=== PATIENT | female | born 1935 | race Caucasian/White ===

== ENCOUNTER 2017-02-18 07:54 | Day surgery (SDC) | payer MEDICARE, BC ==
[~2017-02-18 07:54] MED LIST: Midazolam 1 MG/ML 2 ML SDV ONE; Propofol 200 MG/20 ML SDV ONE; fentaNYL 100 MCG/2 ML SDV ONE
[2017-02-18] MEDS ORDERED: Lactated Ringers 1,000 ML IV SCH (08:30)
[2017-02-18 14:10] VITALS: BP 124/66
--- NOTE | 2017-02-19 08:00 | OR ---
DATE OF PROCEDURE: 02/18/2017 PREOPERATIVE DIAGNOSIS: History of colon cancer. POSTOPERATIVE DIAGNOSES: 1. Multiple colon polyps. 2. History of colon cancer. No evidence of disease. PROCEDURE PERFORMED: Colonoscopy to the cecum with biopsy resection of multiple colon polyps and snare cautery polypectomy of one polyp. SURGEON: Deric Sweet MD. ANESTHESIA: IV anesthesia with monitored anesthesia care. INDICATIONS: This is an 81-year-old white female who has undergone a left hemicolectomy for colon cancer. She is here for a followup colonoscopy. I counseled her for the procedure including risks and alternatives, and she gave her informed consent to proceed. DESCRIPTION OF PROCEDURE: The patient was placed in the left lateral decubitus position. IV anesthesia was administered by the Anesthesia Service. Time-out was held. A rectal exam was performed, which was unremarkable. The flexible video Olympus colonoscope was introduced through her anus, up her rectum, and out her colon all the way to the cecum. En route, we encountered a polyp in the proximal transverse colon, which we initially biopsied. It was too large to remove using this technique. A snare was passed about its base, it was elevated up away from the bowel wall and amputated as electrocautery was applied. While retrieving the polyp, we encountered two more polyps adjacent to each other in the mid transverse colon. These were removed with the biopsy forceps. Once the cecum was reached, the scope was slowly withdrawn, examining the mucosa throughout. A small right colon polyp was seen, which we removed with the biopsy forceps. A distal sigmoid colon polyp was seen, which we removed with the biopsy forceps. The scope was brought back through the anastomosis which appeared well with no evidence of local recurrence. We did see a small polyp in the rectum which was removed with the biopsy forceps. The scope was retroflexed with the distal rectum appearing some minor hemorrhoidal tissue. The scope was straightened and removed. She tolerated the procedure well. Deric Sweet MD /[id number]
== END 2017-02-18 13:25 | disposition home or self-care (01) ==
LOC: JP.SDS 07:54
PROVIDERS: ATTEND Surgery
DX: Z12.11 Encounter for screening for malignant neoplasm of colon (principal); D12.3 Benign neoplasm of transverse colon; D12.2 Benign neoplasm of ascending colon; D12.5 Benign neoplasm of sigmoid colon; Z85.038 Personal history of other malignant neoplasm of large intestine
CPT/HCPCS: 45380; 45385; 88305; J2250; J2704; J3010; J7120

== ENCOUNTER 2019-10-12 09:53 | Emergency (ER) | payer BC, MEDICARE ==
[2019-10-12 10:21] VITALS: BP 114/64; PULSE 91
--- NOTE | 2019-10-12 11:02 | EDM.PDOC ---
ED HPI GENERAL MEDICAL PROBLEM - General Chief Complaint: Syncope Stated Complaint: DIZZY SOME Time Seen by Provider: 10/12/19 10:20 Source of Information: Reports: Patient, Family History Limitations: Reports: No Limitations - History of Present Illness INITIAL COMMENTS - FREE TEXT/NARRATIVE: 84-year-old female with a known history of colon cancer who is scheduled for colonoscopy tomorrow, has started the prep this morning. She was having her virtual visit over the computer this morning, and when that ended she got up and went in to another room of the house and she told her she "needed to lie down". She then became very weak and dizzy and he assisted her to the floor and he claims she "passed out", she thinks she just was resting for a bit. She had no pain, no trauma, mild nausea but no vomiting and no other symptoms of mild dizziness. She denied any palpitations or shortness of breath , her main complaint at this time is that she feels hungry and she is angry about being here. She was asked if she wanted something to eat and she responded she could not eat anything because she is preparing for a colonoscopy which I felt was a fairly good cognitive sign. I did review her clinic visit from earlier this morning and she displayed significant baseline confusion during the interview. Onset: Sudden (Near syncopal symptoms started fairly suddenly this morning) Duration: Minutes: (Several minutes) Associated Symptoms: Reports: Weakness, Other (Dizziness). Denies: Headaches, Nausea/Vomiting, Shortness of Breath - Related Data Allergies Allergy/AdvReac Type Severity Reaction Status Date / Time amoxicillin [Amoxicillin] Allergy Rash Verified 10/12/19 10:15 Iodinated Contrast Media Allergy Itching Verified 10/12/19 10:15 [Iodinated Contrast Media - IV Dye] seafood Allergy Other Uncoded 10/12/19 10:15 Home Meds: Home Meds metFORMIN [Glucophage] 500 mg PO DAILY 12/07/13 [History] Memantine [Namenda] 10 mg PO BID 02/16/17 [History] Sertraline HCl 100 mg PO DAILY 02/16/17 [History] atorvaSTATin [Lipitor] 20 mg PO BEDTIME 02/16/17 [History] Psyllium with Sucrose [Metamucil] 1 pack PO DAILY 02/18/17 [History] Aspirin [Halfprin] 81 mg PO DAILY 01/13/18 [History] Past Medical History HEENT History: Reports: Hard of Hearing, Impaired Vision Other HEENT History: denture upper and lower; wears glasses Cardiovascular History: Reports: Blood Clots/VTE/DVT Gastrointestinal History: Reports: Colon Polyp, Hepatitis Other Gastrointestinal History: colon cancer-resection 2012 Genitourinary History: Reports: UTI, Recurrent 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: Neurological History: Reports: Other (See Below) Other Neuro History: memory loss Psychiatric History: Reports: Dementia, Depression Endocrine/Metabolic History: Reports: Diabetes, Type II, Obesity/BMI 30+ Hematologic History: Reports: Blood Transfusion(s) Oncologic (Cancer) History: Reports: Colon - Infectious Disease History Infectious Disease History: Reports: Chicken Pox, Measles, Mumps, Rubella - Past Surgical History HEENT Surgical History: Reports: Cataract Surgery, Oral Surgery, Tonsillectomy GI Surgical History: Reports: Appendectomy, Cholecystectomy, Colonoscopy, Polypectomy Female Surgical History: Reports: Hysterectomy, Salpingo-Oophorectomy Endocrine Surgical History: Reports: None Neurological Surgical History: Reports: None Oncologic Surgical History: Reports: Other (See Below) Other Oncologic Surgeries/Procedures: colon resection Dermatological Surgical History: Reports: None Social & Family History - Tobacco Use Smoking Status *Q: Never Smoker - Caffeine Use Caffeine Use: Reports: Coffee, Tea Caffeine Use Comment: 1 cup daily - Recreational Drug Use Recreational Drug Use: No ED ROS GENERAL - Review of Systems Review Of Systems: See Below Constitutional: Denies: Fever, Chills HEENT: Reports: No Symptoms Respiratory: Denies: Shortness of Breath Cardiovascular: Denies: Chest Pain, Palpitations GI/Abdominal: Denies: Vomiting Skin: Reports: No Symptoms Neurological: Reports: Dizziness. Denies: Headache ED EXAM, GENERAL - Physical Exam Exam: See Below Exam Limited By: No Limitations General Appearance: Alert, No Apparent Distress Eye Exam: Bilateral Eye: Normal Inspection Head: Atraumatic Neck: Supple, Non-Tender Respiratory/Chest: No Respiratory Distress, Lungs Clear Cardiovascular: Regular Rate, Rhythm. No: Extra Beats Extremities: Normal Inspection. No: Pedal Edema Neurological: Alert, Oriented, No Motor/Sensory Deficits Psychiatric: Normal Affect, Normal Mood Skin Exam: Warm, Dry Course - Vital Signs Last Recorded V/S: Last Vital Signs Temp 98.0 F 10/12/19 10:14 Pulse 91 10/12/19 10:14 Resp 16 10/12/19 10:14 BP 114/64 10/12/19 10:14 Pulse Ox 96 10/12/19 10:14 - Orders/Labs/Meds Labs: Laboratory Tests 10/12/19 10/12/19 Range/Units 11:05 11:05 WBC 8.0 (4.5-11.0) K/uL RBC 4.36 (3.30-5.50) M/uL Hgb 13.4 (12.0-15.0) g/dL Hct 41.6 (36.0-48.0) % MCV 95 (80-98) fL MCH 31 (27-31) pg MCHC 32 (32-36) % Plt Count 250 (150-400) K/uL Neut % (Auto) 79 H (36-66) % Lymph % (Auto) 13 L (24-44) % [place] % (Auto) 8 H (2-6) % Eos % (Auto) 1 L (2-4) % Baso % (Auto) 0 (0-1) % Sodium 136 L (140-148) mmol/L Potassium 4.7 (3.6-5.2) mmol/L Chloride 100 (100-108) mmol/L Carbon Dioxide 26 (21-32) mmol/L Anion Gap 14.7 H (5.0-14.0) mmol/L BUN 13 (7-18) mg/dL Creatinine 1.2 H (0.6-1.0) mg/dL Est Cr Clr Drug Dosing 27.11 mL/min Estimated GFR (MDRD) 43 L (>60) Glucose 134 H (74-106) mg/dL Calcium 9.0 (8.5-10.1) mg/dL - Re-Assessments/Exams Free Text/Narrative Re-Assessment/Exam: 10/12/19 11:04 Reviewed her clinic records and the most recent labs I can find are just over 1 month ago. I think it is reasonable to keep her on cardiac monitoring for the next 45 minutes to an hour while we obtain a CBC and BMP. Her did check her glucose at home and it was 170, this was not hypoglycemia. Her vitals are stable, blood pressure is normal. I feel she had a vagal episode as she remembers presyncopal symptoms and is also undergoing a colonoscopy preparation. 10/12/19 11:34 Patient remained asymptomatic while in the emergency room, normal sinus rhythm without ectopy or arrhythmia. CBC returned normal, BMP also reassuring as her electrolytes are normal, creatinine and GFR are mildly abnormal but almost identical to her previous levels. Creatinine is 1.2 and GFR 43. Patient was discharged with near syncopal episode and encouraged to follow through with her colonoscopy plans and follow-up as scheduled. Departure - Departure Time of Disposition: 11:43 Disposition: Home, Self-Care 01 Clinical Impression: Syncope, vasovagal - Discharge Information Instructions: Syncope, [id number] Referrals: Phan Kamara NP [Primary Care Provider] - Forms: ED Department Discharge Care Plan Goals: Continue your current colonoscopy preparation as instructed, and follow through with your procedure as planned. Return to the emergency room at any time if worsening or concerns. Sepsis Event Note - Evaluation Sepsis Screening Result: No Definite Risk - Focused Exam Vital Signs: Vital Signs Temp Pulse Resp BP Pulse Ox 10/12/19 10:14 98.0 F 91 16 114/64 96 10/12/19 10:10 98.0 F 91 16 114/64 96 Date Exam was Performed: 10/12/19 Time Exam was Performed: 13:30
== END 2019-10-12 11:42 | disposition home or self-care (01) ==
LOC: JP.ED 09:53
DX: R55 Syncope and collapse (principal); E11.9 Type 2 diabetes mellitus without complications; F32.9 Major depressive disorder, single episode, unspecified; E66.9 Obesity, unspecified; Z68.36 Body mass index [BMI] 36.0-36.9, adult; Z86.718 Personal history of other venous thrombosis and embolism; Z88.1 Allergy status to other antibiotic agents; Z91.041 Radiographic dye allergy status; Z91.018 Allergy to other foods; Z79.84 Long term (current) use of oral hypoglycemic drugs; Z79.82 Long term (current) use of aspirin; Z79.899 Other long term (current) drug therapy
CPT/HCPCS: 36415; 80048; 85025; 99283; 99284

== ENCOUNTER 2019-10-13 08:09 | Day surgery (SDC) | payer MEDICARE ==
[2019-10-13] MEDS ORDERED: Dextrose 5%-Lactated Ringers 1,000 ML IV SCH (09:00)
[2019-10-13] MEDS ORDERED: fentaNYL 100 MCG/2 ML SDV ONE (09:01)
[2019-10-13] MEDS ORDERED: Propofol 200 MG/20 ML SDV ONE (09:01)
[2019-10-13] MEDS ORDERED: Midazolam 1 MG/ML 2 ML SDV ONE (09:01)
[2019-10-13] MEDS ORDERED: Famotidine 20 MG/2 ML SDV IVPUSH ONE (11:27)
[2019-10-13] MEDS ORDERED: methylPREDNISolone Sodium Succinate 125 MG/2 ML SDV IVPUSH ONE (11:27)
[2019-10-13 12:05] VITALS: BP 126/65; PULSE 73
--- NOTE | 2019-10-26 15:59 | OR ---
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 POSTOPERATIVE DIAGNOSIS: Normal colonoscopic examination. No signs of local recurrence or additional neoplastic development. OPERATIVE PROCEDURE: Flexible colonoscopy. ANESTHESIA: IV sedation. INDICATION FOR PROCEDURE: This is an 84-year-old status post previous extended right colectomy presenting for followup colonoscopy. She had the descending colon carcinoma treated with extended right colectomy in 2012. She had 3 positive lymph nodes and underwent postoperative adjuvant chemotherapy, and has had no signs of recurrence. Plan is to proceed with a followup colonoscopy. Potential risks including bleeding and perforation were discussed, and the patient wishes to proceed. DETAILS OF PROCEDURE: The patient was taken to the operating room, placed in a left lateral decubitus position. IV sedation was administered, after which the initial digital rectal exam was performed and was unremarkable. Colonoscope was then passed into the rectum with retroflexion revealing uncomplicated hemorrhoidal columns. The scope was then eventually passed up to the level of the ileocolic anastomosis. To that level, no abnormalities were noted. There were no diverticula or areas of colitis, and there were no signs of any additional neoplastic changes in terms of additional polyps and there were no signs of any local recurrence at the ileocolic anastomosis. The prep was generally quite good. Scope was then withdrawn and the procedure was then concluded. At aged 84, if by some chance patient remains in quite good health at age 89, which appeared to be probably unlikely, but if that were to occur, it would be reasonable to think of a followup colonoscopy at that time. Ky Paz MD /[id number]
== END 2019-10-13 12:10 | disposition home or self-care (01) ==
LOC: JP.SDS 08:09
PROVIDERS: ATTEND Surgery
DX: Z08 Encounter for follow-up examination after completed treatment for malignant neoplasm (principal); E11.9 Type 2 diabetes mellitus without complications; Z85.038 Personal history of other malignant neoplasm of large intestine; Z85.79 Personal history of other malignant neoplasms of lymphoid, hematopoietic and related tissues; Z92.21 Personal history of antineoplastic chemotherapy; Z90.49 Acquired absence of other specified parts of digestive tract
CPT/HCPCS: 36415; 45378; 80053; 85027; 85651; 86140; J2250; J2704; J2930; J3010; J3490; J7121

== ENCOUNTER 2019-10-16 13:37 | Emergency (ER) | payer MEDICARE ==
[2019-10-16 13:59] VITALS: BP 132/71; PULSE 90
[2019-10-16] MEDS ORDERED: Cetirizine 10 MG Tab PO ONE (14:18)
[2019-10-16] MEDS ORDERED: Famotidine 20 MG Tab PO ONE (14:19)
[2019-10-16] MEDS ORDERED: diphenhydrAMINE 25 MG Cap PO ONE (14:19)
--- NOTE | 2019-10-16 14:25 | EDM.PDOC ---
ED HPI GENERAL MEDICAL PROBLEM - General Chief Complaint: Allergic Reaction Stated Complaint: MEDICAL Time Seen by Provider: 10/16/19 14:10 Source of Information: Reports: Patient, Family, Old Records, RN History Limitations: Reports: Other (poor historians) - History of Present Illness INITIAL COMMENTS - FREE TEXT/NARRATIVE: 84 yo female recently had colonoscopy by Dr. Paz. Since then she has been experiencing hives without any swallowing or breathing issues. They contacted Dr. Paz's office by phone and were prescribed a medrol dose pack which they have taken now for 2 days without benefit. She is not taking any antihistamines. They have no idea what is causing this rash. They have not been prescribed any new meds except for the methylprednisolone. They have not had any contact with their primary care provider, Phan Kamara. Onset: Gradual Onset Date: 10/10/19 Duration: Day(s):, Constant Location: Reports: Generalized Quality: Reports: Other (itchy) Severity: Moderate Improves with: Reports: None Worsens with: Reports: Other (unknown) Context: Reports: Other (See HPI) Associated Symptoms: Reports: Rash Treatments [employer]: Reports: Other (see below) (methyprednisolone) - Related Data Allergies Allergy/AdvReac Type Severity Reaction Status Date / Time amoxicillin [Amoxicillin] Allergy Rash Verified 10/16/19 13:56 Iodinated Contrast Media Allergy Itching Verified 10/16/19 13:56 [Iodinated Contrast Media - IV Dye] seafood Allergy Other Uncoded 10/16/19 13:56 Home Meds: Home Meds metFORMIN [Glucophage] 500 mg PO DAILY 12/07/13 [History] Memantine [Namenda] 10 mg PO BID 02/16/17 [History] Sertraline HCl 100 mg PO DAILY 02/16/17 [History] atorvaSTATin [Lipitor] 20 mg PO BEDTIME 02/16/17 [History] Psyllium with Sucrose [Metamucil] 1 pack PO DAILY 02/18/17 [History] Aspirin [Halfprin] 81 mg PO DAILY 01/13/18 [History] Famotidine 20 mg PO BEDTIME PRN #14 tablet 10/16/19 [Rx] methylPREDNISolone [Methylprednisolone] 1 tab PO ASDIRECTED 10/16/19 [History] Past Medical History HEENT History: Reports: Hard of Hearing, Impaired Vision Other HEENT History: denture upper and lower; wears glasses Cardiovascular History: Reports: Blood Clots/VTE/DVT Gastrointestinal History: Reports: Colon Polyp, Hepatitis Other Gastrointestinal History: colon cancer-resection 2012 Genitourinary History: Reports: UTI, Recurrent 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 History: Reports: Other (See Below) Other Neuro History: memory loss Psychiatric History: Reports: Dementia, Depression Endocrine/Metabolic History: Reports: Diabetes, Type II, Obesity/BMI 30+ Hematologic History: Reports: Blood Transfusion(s) Oncologic (Cancer) History: Reports: Colon - Infectious Disease History Infectious Disease History: Reports: Chicken Pox, Measles, Mumps - Past Surgical History HEENT Surgical History: Reports: Cataract Surgery, Oral Surgery, Tonsillectomy GI Surgical History: Reports: Appendectomy, Cholecystectomy, Colonoscopy, Polypectomy Female Surgical History: Reports: Hysterectomy, Salpingo-Oophorectomy Endocrine Surgical History: Reports: None Neurological Surgical History: Reports: None Oncologic Surgical History: Reports: Other (See Below) Other Oncologic Surgeries/Procedures: colon resection Dermatological Surgical History: Reports: None Social & Family History - Tobacco Use Smoking Status *Q: Never Smoker - Caffeine Use Caffeine Use: Reports: Tea Caffeine Use Comment: 1 cup daily ED ROS ALLERGIC REACTION - Review of Systems Review Of Systems: See Below Constitutional: Reports: No Symptoms HEENT: Reports: No Symptoms Respiratory: Reports: No Symptoms Cardiovascular: Reports: No Symptoms Skin: Reports: Pruritis, Rash, Erythema ED EXAM GENERAL NO PERIP PULSE - Physical Exam Exam: See Below Exam Limited By: No Limitations General Appearance: Alert, WD/WN, No Apparent Distress, Obese Eye Exam: Bilateral Eye: Normal Inspection Ears: Normal External Exam, Normal Canal, Hearing Grossly Normal, Normal TMs Nose: Normal Inspection, No Blood Throat/Mouth: Normal Inspection, Normal Lips, Normal Oropharynx, Normal Voice, No Airway Compromise Head: Atraumatic, Normocephalic Neck: Normal Inspection Respiratory/Chest: No Respiratory Distress, Lungs Clear, Normal Breath Sounds, No Accessory Muscle Use Cardiovascular: Regular Rate, Rhythm, No Edema Extremities: Normal Inspection Neurological: Alert, Oriented, CN II-XII Intact, Normal Cognition, No Motor/ Sensory Deficits Psychiatric: Normal Affect, Normal Mood Skin Exam: Warm, Dry, Intact, Erythema, Rash (diffuse hives noted). No: Increased Warmth Course - Vital Signs Last Recorded V/S: Last Vital Signs Temp 36.5 C 10/16/19 14:04 Pulse 90 10/16/19 14:04 Resp 20 10/16/19 14:04 BP 132/71 10/16/19 14:04 Pulse Ox 99 10/16/19 14:04 - Orders/Labs/Meds Meds: Medications Discontinued Medications Generic Name Dose Route Start Last Admin Trade Name Freq PRN Reason Stop Dose Admin Cetirizine HCl 10 mg 10/16/19 14:18 Zyrtec PO 10/16/19 14:19 ONETIME ONE Diphenhydramine HCl 50 mg 10/16/19 14:19 Benadryl PO 10/16/19 14:20 ONETIME ONE Famotidine 20 mg 10/16/19 14:19 Pepcid PO 10/16/19 14:20 ONETIME ONE Departure - Departure Time of Disposition: 14:35 Disposition: Home, Self-Care 01 Condition: Good Clinical Impression: Hives - Discharge Information *PRESCRIPTION DRUG MONITORING PROGRAM REVIEWED*: Not Applicable *COPY OF PRESCRIPTION DRUG MONITORING REPORT IN PATIENT JV: Not Applicable Prescriptions: Famotidine 20 mg PO BEDTIME PRN #14 tablet PRN Reason: Hives Instructions: Hives, [id number] Referrals: PCP,None [Primary Care Provider] - Additional Instructions: Continue taking your methylprednisolone as before. Take cetirizine 10 mg every day at 2:30 pm until your rash is gone and stays away. Take famotidine 20 mg every day at bedtime until your rash is gone and stays away. Take diphenhydramine 50 mg every 4-6 hrs as needed until your rash stays away. Recheck with Phan Kamara if your problem is not resolved by midweek. Return here is you develop breathing or swallowing troubles. Sepsis Event Note - Evaluation Sepsis Screening Result: No Definite Risk - Focused Exam Vital Signs: Vital Signs Temp Pulse Resp BP Pulse Ox 10/16/19 14:04 36.5 C 90 20 132/71 99 10/16/19 13:53 36.5 C 90 20 132/71 99 Date Exam was Performed: 10/16/19 Time Exam was Performed: 14:20
== END 2019-10-16 15:24 | disposition home or self-care (01) ==
LOC: JP.ED 13:37
DX: L50.9 Urticaria, unspecified (principal); E11.9 Type 2 diabetes mellitus without complications; E66.9 Obesity, unspecified; Z79.899 Other long term (current) drug therapy; Z79.82 Long term (current) use of aspirin; Z79.84 Long term (current) use of oral hypoglycemic drugs; Z68.35 Body mass index [BMI] 35.0-35.9, adult; Z88.0 Allergy status to penicillin; Z91.041 Radiographic dye allergy status; Z91.013 Allergy to seafood
CPT/HCPCS: 99283; A9270

== ENCOUNTER 2019-12-08 16:08 | Emergency (ER) | payer MEDICARE ==
[2019-12-08 16:14] VITALS: BP 151/74; PULSE 75
[2019-12-08] MEDS ORDERED: Lactated Ringers 500 ML IV ONE (17:00)
[2019-12-08] MEDS ORDERED: Sodium Chloride 0.9% 10 ML Syringe FLUSH PRN (17:00)
--- NOTE | 2019-12-08 17:03 | EDM.PDOC ---
ED HPI GENERAL MEDICAL PROBLEM - General Chief Complaint: Gastrointestinal Problem Stated Complaint: MEDICAL VIA [facility] Time Seen by Provider: 12/08/19 16:41 Source of Information: Reports: Patient, RN Notes Reviewed History Limitations: Reports: No Limitations - History of Present Illness INITIAL COMMENTS - FREE TEXT/NARRATIVE: 84-year-old female presents emergency department today via EMS services. She was found crawling on the floor family states she was confused however she states she was crawling on the floor because she was trying to crawl outside because she has to vomit. She has been ill for about 3 to 4 days nausea some vomiting no diarrhea no shortness of breath no chest pain no specific abdominal pain. Does have a history of stage III colorectal cancer - Related Data Allergies Allergy/AdvReac Type Severity Reaction Status Date / Time amoxicillin [Amoxicillin] Allergy Rash Verified 12/08/19 16:18 Iodinated Contrast Media Allergy Itching Verified 12/08/19 16:18 [Iodinated Contrast Media - IV Dye] seafood Allergy Other Uncoded 12/08/19 16:18 Home Meds: Home Meds metFORMIN [Glucophage] 500 mg PO DAILY 12/07/13 [History] Memantine [Namenda] 10 mg PO BID 02/16/17 [History] Sertraline HCl 100 mg PO DAILY 02/16/17 [History] atorvaSTATin [Lipitor] 20 mg PO BEDTIME 02/16/17 [History] Psyllium with Sucrose [Metamucil] 1 pack PO DAILY 02/18/17 [History] Aspirin [Halfprin] 81 mg PO DAILY 01/13/18 [History] Past Medical History HEENT History: Reports: Hard of Hearing, Impaired Vision Other HEENT History: denture upper and lower; wears glasses Cardiovascular History: Reports: Blood Clots/VTE/DVT Gastrointestinal History: Reports: Colon Polyp, Hepatitis Other Gastrointestinal History: colon cancer-resection 2012 Genitourinary History: Reports: UTI, 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: Neurological History: Reports: Other (See Below) Other Neuro History: memory loss dementia Psychiatric History: Reports: Dementia, Depression Endocrine/Metabolic History: Reports: Diabetes, Type II, Obesity/BMI 30+ Hematologic History: Reports: Blood Transfusion(s) Oncologic (Cancer) History: Reports: Colon - Infectious Disease History Infectious Disease History: Reports: Chicken Pox, Measles, Mumps - Past Surgical History HEENT Surgical History: Reports: Cataract Surgery, Oral Surgery, Tonsillectomy GI Surgical History: Reports: Appendectomy, Cholecystectomy, Colonoscopy, Polypectomy Female Surgical History: Reports: Hysterectomy, Salpingo-Oophorectomy Neurological Surgical History: Reports: None Oncologic Surgical History: Reports: Other (See Below) Other Oncologic Surgeries/Procedures: colon resection Dermatological Surgical History: Reports: None Social & Family History - Tobacco Use Smoking Status *Q: Never Smoker Second Hand Smoke Exposure: No - Caffeine Use Caffeine Use: Reports: Coffee, Tea Caffeine Use Comment: 1 cup daily - Recreational Drug Use Recreational Drug Use: No ED ROS GENERAL - Review of Systems Review Of Systems: See Below Constitutional: Reports: Weakness. Denies: Fever, Chills HEENT: Reports: No Symptoms Respiratory: Reports: No Symptoms Cardiovascular: Reports: No Symptoms GI/Abdominal: Reports: Nausea, Vomiting. Denies: Abdominal Pain, Constipation, Diarrhea : Reports: No Symptoms ED EXAM, GI/ABD - Physical Exam Exam: See Below Exam Limited By: No Limitations General Appearance: Alert, WD/WN, No Apparent Distress Neck: Normal Inspection, Supple, Non-Tender, Full Range of Motion Respiratory/Chest: No Respiratory Distress, Lungs Clear, Normal Breath Sounds, No Accessory Muscle Use, Chest Non-Tender Cardiovascular: Regular Rate, Rhythm, No Murmur GI/Abdominal Exam: Soft, Non-Tender Course - Vital Signs Last Recorded V/S: Last Vital Signs Temp 96.9 F 12/08/19 16:39 Pulse 75 12/08/19 16:39 Resp 13 12/08/19 16:39 BP 151/74 H 12/08/19 16:39 Pulse Ox 96 12/08/19 16:39 - Orders/Labs/Meds Orders: Active Orders 24 hr Category Date Time Status Peripheral IV Care [RC] . DIRECTED Care 12/08/19 17:01 Active CULTURE URINE [RM] Urgent Lab 12/08/19 17:38 Received Sodium Chloride 0.9% [Saline Flush] Med 12/08/19 17:00 Active 10 ml FLUSH ASDIRECTED PRN Peripheral IV Insertion Adult [OM.PC] Stat Oth 12/08/19 17:00 Ordered Medication Orders Sodium Chloride (Saline Flush) 10 ml FLUSH ASDIRECTED PRN PRN Reason: Keep Vein Open Labs: Laboratory Tests 12/08/19 12/08/19 12/08/19 Range/Units 17:00 17:07 17:13 WBC 7.9 (4.5-11.0) K/uL RBC 4.42 (3.30-5.50) M/uL Hgb 13.5 (12.0-15.0) g/dL Hct 41.9 (36.0-48.0) % MCV 95 (80-98) fL MCH 31 (27-31) pg MCHC 32 (32-36) % Plt Count 243 (150-400) K/uL Neut % (Auto) 77 H (36-66) % Lymph % (Auto) 16 L (24-44) % [place] % (Auto) 6 (2-6) % Eos % (Auto) 1 L (2-4) % Baso % (Auto) 1 (0-1) % Sodium 136 L (140-148) mmol/L Potassium 4.4 (3.6-5.2) mmol/L Chloride 99 L (100-108) mmol/L Carbon Dioxide 27 (21-32) mmol/L Anion Gap 14.4 H (5.0-14.0) mmol/L BUN 13 (7-18) mg/dL Creatinine 1.1 H (0.6-1.0) mg/dL Est Cr Clr Drug Dosing 29.57 mL/min Estimated GFR (MDRD) 47 L (>60) Glucose 126 H (74-106) mg/dL Lactic Acid (0.4-2.0) mmol/L Calcium 9.2 (8.5-10.1) mg/dL Total Bilirubin 0.6 (0.2-1.0) mg/dL AST 18 (15-37) U/L ALT 36 (12-78) U/L Alkaline Phosphatase 99 (46-116) U/L Creatine Kinase (26-192) U/L Troponin I < 0.017 (0.000-0.056) ng/mL Total Protein 7.6 (6.4-8.2) g/dL Albumin 4.0 (3.4-5.0) g/dL Globulin 3.6 H (2.3-3.5) g/dL Albumin/Globulin Ratio 1.1 L (1.2-2.2) Lipase 166 (73-393) U/L Urine Color Yellow (YELLOW) Urine Appearance Cloudy A (CLEAR) Urine pH 5.5 (5.0-8.0) Ur Specific [place] 1.025 (1.008-1.030) Urine Protein Negative (NEGATIVE) mg/dL Urine Glucose (UA) Negative (NEGATIVE) mg/dL Urine Ketones Trace H (NEGATIVE) mg/dL Urine Occult Blood Small H (NEGATIVE) Urine Nitrite Positive H (NEGATIVE) Urine Bilirubin Negative (NEGATIVE) Urine Urobilinogen 0.2 (0.2-1.0) EU/dL Ur Leukocyte Esterase Negative (NEGATIVE) Urine RBC 5-10 H (0-5) Urine WBC 5-10 H (0-5) Ur Epithelial Cells Few Amorphous Sediment Few Urine Bacteria Many Urine Mucus Few 12/08/19 12/08/19 Range/Units 17:13 17:13 WBC (4.5-11.0) K/uL RBC (3.30-5.50) M/uL Hgb (12.0-15.0) g/dL Hct (36.0-48.0) % MCV (80-98) fL MCH (27-31) pg MCHC (32-36) % Plt Count (150-400) K/uL Neut % (Auto) (36-66) % Lymph % (Auto) (24-44) % [place] % (Auto) (2-6) % Eos % (Auto) (2-4) % Baso % (Auto) (0-1) % Sodium (140-148) mmol/L Potassium (3.6-5.2) mmol/L Chloride (100-108) mmol/L Carbon Dioxide (21-32) mmol/L Anion Gap (5.0-14.0) mmol/L BUN (7-18) mg/dL Creatinine (0.6-1.0) mg/dL Est Cr Clr Drug Dosing mL/min Estimated GFR (MDRD) (>60) Glucose (74-106) mg/dL Lactic Acid 1.3 (0.4-2.0) mmol/L Calcium (8.5-10.1) mg/dL Total Bilirubin (0.2-1.0) mg/dL AST (15-37) U/L ALT (12-78) U/L Alkaline Phosphatase (46-116) U/L Creatine Kinase 66 (26-192) U/L Troponin I (0.000-0.056) ng/mL Total Protein (6.4-8.2) g/dL Albumin (3.4-5.0) g/dL Globulin (2.3-3.5) g/dL Albumin/Globulin Ratio (1.2-2.2) Lipase (73-393) U/L Urine Color (YELLOW) Urine Appearance (CLEAR) Urine pH (5.0-8.0) Ur Specific [place] (1.008-1.030) Urine Protein (NEGATIVE) mg/dL Urine Glucose (UA) (NEGATIVE) mg/dL Urine Ketones (NEGATIVE) mg/dL Urine Occult Blood (NEGATIVE) Urine Nitrite (NEGATIVE) Urine Bilirubin (NEGATIVE) Urine Urobilinogen (0.2-1.0) EU/dL Ur Leukocyte Esterase (NEGATIVE) Urine RBC (0-5) Urine WBC (0-5) Ur Epithelial Cells Amorphous Sediment Urine Bacteria Urine Mucus Meds: Medications Generic Name Dose Route Start Last Admin Trade Name Freq PRN Reason Stop Dose Admin Sodium Chloride 10 ml 12/08/19 17:00 Saline Flush FLUSH ASDIRECTED PRN Keep Vein Open Discontinued Medications Generic Name Dose Route Start Last Admin Trade Name Freq PRN Reason Stop Dose Admin Lactated Ringer's 500 mls @ 999 mls/hr 12/08/19 17:00 12/08/19 17:09 Ringers, Lactated IV 12/08/19 17:30 999 mls/hr .BOLUS ONE Administration Departure - Departure Time of Disposition: 18:03 Disposition: Home, Self-Care 01 Condition: Fair Clinical Impression: Urinary tract infection Qualifiers: Urinary tract infection type: acute cystitis Hematuria presence: with hematuria Qualified Code(s): N30.01 - Acute cystitis with hematuria - Discharge Information Instructions: Urinary Tract Infection, Adult Referrals: Phan Kamara NP [Primary Care Provider] - Forms: ED Department Discharge Additional Instructions: Take full course of antibiotics, use Zofran as needed for any nausea and vomiting symptoms, culture results should be available in 4 to 5 days, please followup with your primary care provider in 3-5 days if not better, please call return to the emergency department with worsening of symptoms. Sepsis Event Note (ED) - Evaluation Sepsis Screening Result: No Definite Risk - Focused Exam Vital Signs: Vital Signs Temp Pulse Resp BP Pulse Ox 12/08/19 16:39 96.9 F 75 13 151/74 H 96 12/08/19 16:13 96.9 F 75 13 151/74 H 96 - My Orders Last 24 Hours: My Active Orders 12/08/19 17:00 Sodium Chloride 0.9% [Saline Flush] 10 ml FLUSH ASDIRECTED PRN Peripheral IV Insertion Adult [OM.PC] Stat 12/08/19 17:01 Peripheral IV Care [RC] . DIRECTED 12/08/19 17:38 CULTURE URINE [RM] Urgent - Assessment/Plan Last 24 Hours: My Active Orders 12/08/19 17:00 Sodium Chloride 0.9% [Saline Flush] 10 ml FLUSH ASDIRECTED PRN Peripheral IV Insertion Adult [OM.PC] Stat 12/08/19 17:01 Peripheral IV Care [RC] . DIRECTED 12/08/19 17:38 CULTURE URINE [RM] Urgent Plan: Assessment Acuity = acute Site and laterality = urinary tract infection complicated illness with nausea and vomiting Etiology = probable bacterial cause Manifestations = none Location of injury = Home Lab values = CBC and CMP unremarkable urinalysis is positive for nitrates with 5-10 WBCs consistent with pyuria 5-10 RBCs consistent with hematuria urine culture is pending Plan She had good relief with 1 L fluids Zofran provided in the ambulance, I talked her about hospitalization of which she declined she would like to try this outpatient therefore prescription written for Zofran 1 tab p.o. 3 times daily as needed told #5 4 mg dose, Bactrim DS 1 tab p.o. twice daily x3 days follow-up primary care 3 to 5 days if not better This note was dictated using [employer] voice recognition software please call with any questions on syntax or grammar.
== END 2019-12-08 18:15 | disposition home or self-care (01) ==
LOC: JP.ED 16:08
DX: N30.01 Acute cystitis with hematuria (principal); E11.9 Type 2 diabetes mellitus without complications; Z79.84 Long term (current) use of oral hypoglycemic drugs; E66.9 Obesity, unspecified; Z68.34 Body mass index [BMI] 34.0-34.9, adult; Z88.1 Allergy status to other antibiotic agents; Z91.041 Radiographic dye allergy status; Z91.013 Allergy to seafood; F03.90 Unspecified dementia, unspecified severity, without behavioral disturbance, psychotic disturbance, mood disturbance, and anxiety; F32.9 Major depressive disorder, single episode, unspecified; Z79.82 Long term (current) use of aspirin; Z79.899 Other long term (current) drug therapy
CPT/HCPCS: 36415; 80053; 81001; 82550; 83605; 83690; 84484; 85025; 87086; 87088; 87186; 99284; J7120; 99283

== ENCOUNTER 2019-12-13 14:53 | Emergency (ER) | payer MEDICARE ==
[2019-12-13 15:02] VITALS: BP 128/70; PULSE 78
--- NOTE | 2019-12-13 15:49 | EDM.PDOC ---
ED HPI GENERAL MEDICAL PROBLEM - General Chief Complaint: General Stated Complaint: NOT FEELING WELL AFTER PROCEDURE Time Seen by Provider: 12/13/19 15:40 Source of Information: Reports: Patient, Family History Limitations: Reports: No Limitations - History of Present Illness INITIAL COMMENTS - FREE TEXT/NARRATIVE: Pt seen here after OP procedure for breast biopsy. Enochs "weak" after procedure. Feels fine now. Daughter bedside Onset: Today Onset Date: 12/13/19 Duration: Hour(s):, Other (After breast biopsy, pt felt "weak") Improves with: Reports: None Worsens with: Reports: None - Related Data Allergies Allergy/AdvReac Type Severity Reaction Status Date / Time amoxicillin [Amoxicillin] Allergy Rash Verified 12/13/19 15:18 Iodinated Contrast Media Allergy Itching Verified 12/13/19 15:18 [Iodinated Contrast Media - IV Dye] seafood Allergy Other Uncoded 12/13/19 15:18 Home Meds: Home Meds metFORMIN [Glucophage] 500 mg PO DAILY 12/07/13 [History] Memantine [Namenda] 10 mg PO BID 02/16/17 [History] Sertraline HCl 100 mg PO DAILY 02/16/17 [History] atorvaSTATin [Lipitor] 20 mg PO BEDTIME 02/16/17 [History] Psyllium with Sucrose [Metamucil] 1 pack PO DAILY 02/18/17 [History] Past Medical History HEENT History: Reports: Hard of Hearing, Impaired Vision Other HEENT History: denture upper and lower; wears glasses Cardiovascular History: Reports: Blood Clots/VTE/DVT Gastrointestinal History: Reports: Colon Polyp, Hepatitis Other Gastrointestinal History: colon cancer-resection 2012 Genitourinary History: Reports: UTI, Recurrent 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 History: Reports: Other (See Below) Other Neuro History: memory loss dementia Psychiatric History: Reports: Dementia, Depression Endocrine/Metabolic History: Reports: Diabetes, Type II, Obesity/BMI 30+ Hematologic History: Reports: Blood Transfusion(s) Oncologic (Cancer) History: Reports: Colon - Infectious Disease History Infectious Disease History: Reports: Chicken Pox, Measles, Mumps - Past Surgical History HEENT Surgical History: Reports: Cataract Surgery, Oral Surgery, Tonsillectomy GI Surgical History: Reports: Appendectomy, Cholecystectomy, Colon, Colonoscopy, Polypectomy Female Surgical History: Reports: Hysterectomy, Salpingo-Oophorectomy Neurological Surgical History: Reports: None Oncologic Surgical History: Reports: Other (See Below) Other Oncologic Surgeries/Procedures: colon resection Dermatological Surgical History: Reports: None Social & Family History - Tobacco Use Smoking Status *Q: Never Smoker - Caffeine Use Caffeine Use: Reports: Coffee Caffeine Use Comment: 1 cup daily ED ROS GENERAL - Review of Systems Review Of Systems: See Below Constitutional: Reports: No Symptoms Respiratory: Reports: No Symptoms Cardiovascular: Reports: No Symptoms Endocrine: Reports: Other (Possible hypoglycemic. Pr op RN checked FBS. Pt does not remember value) GI/Abdominal: Reports: Other (Feels "full from lunch") : Reports: No Symptoms Musculoskeletal: Reports: No Symptoms Skin: Reports: No Symptoms Neurological: Reports: No Symptoms Psychiatric: Reports: No Symptoms Hematologic/Lymphatic: Reports: No Symptoms Immunologic: Reports: No Symptoms ED EXAM, GENERAL - Physical Exam Exam: See Below Exam Limited By: No Limitations General Appearance: Alert, WD/WN, No Apparent Distress Eye Exam: Bilateral Eye: Normal Inspection, PERRL Head: Normocephalic Neck: Normal Inspection, Supple, Non-Tender, Full Range of Motion Respiratory/Chest: No Respiratory Distress Cardiovascular: Normal Peripheral Pulses, Regular Rate, Rhythm, No Edema, No Gallop, No JVD, No Murmur, No Rub Peripheral Pulses: 2+: Radial (L), Radial (R) GI/Abdominal: Normal Bowel Sounds Extremities: Normal Inspection, Normal Range of Motion, Non-Tender, No Pedal Edema, Normal Capillary Refill Neurological: Alert, Oriented, CN II-XII Intact, Normal Cognition Psychiatric: Normal Affect Skin Exam: Warm, Dry, Intact, Normal Color Lymphatic: No Adenopathy Course - Vital Signs Text/Narrative:: Pt exam is unremarkable. Negative assessment. Pt was seen in OP setting for R breat biopsy. Enochs "weak" after procedure. VSS. Exam WNL. Did eat full lunch meal. Daughter bedside. Last Recorded V/S: Last Vital Signs Temp 36.9 C 12/13/19 15:02 Pulse 78 12/13/19 15:02 Resp 16 12/13/19 15:02 BP 128/70 12/13/19 15:02 Pulse Ox 93 L 12/13/19 15:02 Departure - Departure Time of Disposition: 15:55 Disposition: Home, Self-Care 01 Condition: Good Clinical Impression: Weakness Referrals: Phan Kamara NP [Primary Care Provider] - Forms: ED Department Discharge Additional Instructions: Please seek medical attention if your condition worsens or suddenly changes. Get plenty of rest and hydration today. Follow Post Op instructions given from previous appointment. Sepsis Event Note (ED) - Evaluation Sepsis Screening Result: No Definite Risk - Focused Exam Vital Signs: Vital Signs Temp Pulse Resp BP Pulse Ox 12/13/19 15:02 36.9 C 78 16 128/70 93 L 12/13/19 14:59 36.9 C 78 16 128/70 93 L
== END 2019-12-13 16:15 | disposition home or self-care (01) ==
LOC: JP.ED 14:53
DX: R53.1 Weakness (principal); E11.9 Type 2 diabetes mellitus without complications; F32.9 Major depressive disorder, single episode, unspecified; E66.9 Obesity, unspecified; Z68.34 Body mass index [BMI] 34.0-34.9, adult; Z88.1 Allergy status to other antibiotic agents; Z91.013 Allergy to seafood; Z91.041 Radiographic dye allergy status; Z79.84 Long term (current) use of oral hypoglycemic drugs; Z79.899 Other long term (current) drug therapy
CPT/HCPCS: 99284

== ENCOUNTER 2019-12-26 05:29 | Inpatient (IN) | payer MEDICARE ==
[2019-12-26] MEDS ORDERED: Acetaminophen 500 MG Tab PO ONE (06:00)
[2019-12-26] MEDS ORDERED: Isosulfan Blue 5 ML SDV ONE (06:48)
[2019-12-26] MEDS: Dextrose 5%-Lactated Ringers 1,000 ML IV SCH ×2 (06:49→21:07)
[2019-12-26] MEDS ORDERED: fentaNYL 250 MCG/5 ML SDV ONE (07:04)
[2019-12-26] MEDS ORDERED: Dexamethasone 4 MG/ML SDV ONE (07:05)
[2019-12-26] MEDS ORDERED: Propofol 200 MG/20 ML SDV ONE (07:05)
[2019-12-26] MEDS ORDERED: Glycopyrrolate 0.2 MG/ML 5 ML MDV ONE (07:05)
[2019-12-26] MEDS ORDERED: Neostigmine Methylsulfate 1 MG/ML 5 ML Syringe ONE (07:05)
[2019-12-26] MEDS ORDERED: Ondansetron 4 MG/2 ML SDV ONE (07:05)
[2019-12-26] MEDS ORDERED: Rocuronium 50 MG/5 ML Vial ONE (07:05)
[2019-12-26] MEDS ORDERED: ceFAZolin 2 GM in Premix Bag 1 BAG IV ONE (07:15)
[2019-12-26] MEDS ORDERED: Mupirocin Oint 22 GM Tube ONE (08:22)
[2019-12-26] MEDS ORDERED: fentaNYL 100 MCG/2 ML SDV IVPUSH ONE (09:11)
[2019-12-26] MEDS ORDERED: HYDROmorphone 0.5 MG/0.5 ML Syringe IVPUSH PRN (10:15)
[2019-12-26] MEDS ORDERED: HYDROmorphone 2 MG Tab PO PRN (10:16)
[2019-12-26] MEDS ORDERED: Ondansetron 4 MG/2 ML SDV IVPUSH PRN (10:17)
[2019-12-26] MEDS ORDERED: 50% Dextrose in Water 50 ML Syringe IVPUSH PRN (10:18)
[2019-12-26] MEDS ORDERED: Glucagon,Human Recombinant 1 MG Vial IM PRN (10:18)
[2019-12-26] MEDS ORDERED: Glucose Gel 15 GM in 37.5 GM Tube PO PRN (10:18)
[2019-12-26] MEDS: Acetaminophen 325 MG Tab PO SCH ×2 (12:43→17:25)
[2019-12-26] MEDS: ceFAZolin 2 GM in Premix Bag 1 BAG IV SCH ×2 (14:50→21:23)
[2019-12-26] MEDS: atorvaSTATin 20 MG Tab PO SCH (17:24)
[2019-12-26] MEDS: Insulin Lispro 100 Unit/ML 3 ML KwikPen SUBCUT PRN ×2 (17:35→21:25)
[2019-12-26] MEDS: Memantine 10 MG Tab PO SCH (21:23)
[2019-12-27] MEDS: Acetaminophen 325 MG Tab PO SCH ×5 (00:41→23:07)
[2019-12-27] MEDS: ceFAZolin 2 GM in Premix Bag 1 BAG IV SCH (06:03)
[2019-12-27] MEDS: metFORMIN 500 MG Tab PO SCH (07:41)
[2019-12-27] MEDS: Sertraline 50 MG Tab PO SCH (08:22)
[2019-12-27] MEDS: Memantine 10 MG Tab PO SCH ×2 (08:22→20:26)
--- NOTE | 2019-12-27 08:45 | PN ---
DATE OF SERVICE: 12/27/2019 SUBJECTIVE: Lori is postoperative day #1. She states her pain is controlled. She is on scheduled Tylenol. She is up ambulating, afebrile. Oral intake, 1240. Urine output, 2200. FRANKLIN drain 1 and 2 put out 120 and 80 respectively of a light pink drainage. Remainder of review of systems negative for any pertinent positives and negatives. OBJECTIVE: GENERAL: Lori is a pleasant 84-year-old female, some dementia. VITAL SIGNS: TPR at 0400; 97.5, 61, 18. Blood pressure 106/55. HEENT: Negative. NECK: Supple. HEART: Regular rate and rhythm. LUNGS: Clear. BREASTS: Right mastectomy site dressing was removed. [place] intact. No hematoma was seen. There is more swelling towards the lateral edge of the incision from just body habitus. FRANKLIN drain is intact. EXTREMITIES: Without peripheral edema. ASSESSMENT: Right modified mastectomy, injection procedure of iodine for sentinel lymph nodes. Date of procedure 12/26/2019. POSTOPERATIVE DIAGNOSIS: Carcinoma, right breast. PLAN: 1. Dressing was taken down. 2. Saline lock IV. 3. Regular diet. 4. Set up home health care. 5. Communication order written to teach family to strip, drain, measure, and record FRANKLIN drains 4 times a day. 6. Continue use of incentive spirometer. 7. We will evaluate p.r.n. or in a.m. Krystal Mariscal PA-C /[id number]
[2019-12-27] MEDS ORDERED: Psyllium Husk Powder Sugar Free 5.85 GM Packet PO SCH ×2 (09:00→17:00)
[2019-12-27] MEDS ORDERED: diphenhydrAMINE 25 MG Cap PO PRN (09:55)
--- NOTE | 2019-12-27 14:31 | OR ---
DATE OF PROCEDURE: 12/26/2019 SURGEON: Ky Paz MD PREOPERATIVE DIAGNOSIS: Carcinoma of right breast. POSTOPERATIVE DIAGNOSIS: Carcinoma of right breast. OPERATIVE PROCEDURES: 1. Right modified radical mastectomy (). 2. Injection procedure for identification of sentinel lymph nodes ([id number]). ANESTHESIA: General. MINE ENGINEERING MANAGER: Krystal Mariscal PA-C INDICATIONS FOR PROCEDURE: This is an 84-year-old female who was recently noted on mammogram to have some abnormality as well as some palpable fullness in the upper outer quadrant of the right breast. Core biopsies were obtained which confirmed infiltrating ductal carcinoma. After preop evaluation and discussion with the patient and her family (patient has a fair bit of dementia), the decision was made to proceed with a modified radical mastectomy with sentinel node biopsy procedure. Potential risks of the procedure including bleeding, infection, local or distant tumor recurrence as well as possibility of cardiopulmonary, septic, or hemorrhagic complications leading to were all discussed, and the patient and her family wished to proceed. DETAILS OF PROCEDURE: The patient was taken to the operating room, and after general endotracheal anesthesia was induced, 4 mL of Isosulfan blue dye were placed along the upper lateral quadrant of areolar border and the subdermal space. The right breast, axilla, and surrounding areas were prepped and draped. An elliptical incision was then made which encompassed both the nipple-areolar complex as well as the previous biopsy site which was made and carried down through the skin and subcutaneous tissue. Subcutaneous flaps were then raised superiorly, inferiorly, laterally, and medially to the usual extent and the breast was resected off the chest wall in continuity with pectoralis major fascia. There were no signs of any tumor being in the vicinity of the plane of dissection. Attention was then taken to the sentinel node biopsy. The lymphatics could be seen with the blue dye going down and grouping of lymphatics in the lower third of the axilla. Scooping of the lymphatic tissue was then excised using combination of electrocautery and some sutures and a separate specimen which was from the breast containing the sentinel lymph nodes was removed from the field. At this point, good hemostasis was evident. The wound was irrigated with saline solution. Two Isaac-[place] drains were then placed through stab wounds inferior to the main incision across the length of the incision. The incision was then closed with a 3-0 Vicryl stitch deep and then mildred for the skin. Drains were affixed with some 3-0 Vicryl stitch as well and the patient taken to the recovery room in satisfactory condition. There were no evident complications. Physician service assistant, Krystal Mariscal, played an essential role in assisting in this case helping to position the patient, retract structures as needed, as well as suturing and cutting sutures when indicated. Her presence improved patient safety and decreased operative time. Ky Paz MD /[id number]
[2019-12-27] MEDS: atorvaSTATin 20 MG Tab PO SCH (17:20)
[2019-12-28] MEDS: Acetaminophen 325 MG Tab PO SCH (05:07)
[2019-12-28 07:13] VITALS: BP 119/61; PULSE 77
[2019-12-28] MEDS: metFORMIN 500 MG Tab PO SCH (08:53)
[2019-12-28] MEDS: Memantine 10 MG Tab PO SCH (08:54)
[2019-12-28] MEDS: Sertraline 50 MG Tab PO SCH (08:54)
--- NOTE | 2019-12-28 10:40 | DISCH ---
DISCHARGE DATE: 12/28/2019 ADMISSION DIAGNOSES: 1. Right breast cancer. 2. Type 2 diabetes without complication. 3. Anxiety. 4. Hyperlipidemia. 5. Dementia without behavior disturbance. DISCHARGE DIAGNOSES: 1. Right modified radical mastectomy. 2. Injection procedure for identification of sentinel lymph nodes for carcinoma of right breast. DATE OF PROCEDURE: 12/26/2019 SURGEON: Ky Paz MD HISTORY: Lori Ackerman is a pleasant 84-year-old female, who was recently noted on mammogram to have abnormality, as well as palpable fullness in the upper outer quadrant of the right breast. Core biopsies were obtained and confirmed infiltrating ductal carcinoma. After preoperative evaluation and discussion of the possible risks and possible complications, she wished to proceed with surgical procedure. HOSPITAL COURSE: Lori had her surgery on 12/26/2019. She had no operative complications. On postop day #1, her pain was managed with scheduled Tylenol. She was started on a regular diet. Her dressing was taken down. IV was saline locked, and family was taught to strip, drain, measure and record FRANKLIN drains 4 times a day. On postop day #2, Lroi was able to be discharged to home without any complications. PHYSICAL EXAMINATION: GENERAL: Lori Ackerman is a pleasant 84-year-old female in no acute distress. VITAL SIGNS: TPR is 98.6, 77, 18, blood pressure 119/61. HEENT: Negative. NECK: Supple. HEART: Regular rate and rhythm. LUNGS: Clear. BREASTS: Right mastectomy incision is stapled. There is a little bit of bruising towards the axilla or lateral area and no hematoma is noted. FRANKLIN drains x2 intact and have put out 110 and 75 mL respectively. DISPOSITION: Discharged to home. CONDITION: Stable and improving. FOLLOWUP: Appointment with Ky Paz MD, at [facility] on 01/04/2020 at 12:15 p.m. MEDICATIONS: Two doses of milk of magnesia 30 mL were sent home with the patient, and she is to take 1 daily p.r.n. constipation. To resume home medication of aspirin 81 mg daily, Namenda 10 mg oral twice daily, omega-3 1000 mg oral daily, Metamucil 1 pack daily, and sertraline 100 mg oral daily. DIET: Diabetic diet as before. Drink 8 to 10 glasses of water. ACTIVITY: No lifting greater than 10 pounds for 6 weeks. Driving: Do not drive for 1 week. Shower/bathing: May shower. DISCHARGE INSTRUCTIONS: Notify provider if any fever, increased pain, drainage, nausea, or vomiting. Keep site clean and dry. Wound incision care: Strip, empty, measure, and record FRANKLIN drains each separately 4 times a day. Bring record of drainage to clinic appointment. SPECIAL INSTRUCTION: Use incentive spirometer 10 times every hour while awake.
== END 2019-12-28 11:45 | disposition home or self-care (01) | DRG 583 ==
LOC: JP.SDSSCHI 05:29 → JP.SDS 05:29 → EDSTATUS 07:15 → JP.MS 09:00
PROVIDERS: ADMIT Surgery; ATTEND Surgery
PROC: 0HTT0ZZ Resection of Right Breast, Open Approach (ICD-10-PCS; principal; 2019-12-26)
PROC: 3E0W3HZ Introduction of Radioactive Substance into Lymphatics, Percutaneous Approach (ICD-10-PCS; 2019-12-26)
DX: C50.911 Malignant neoplasm of unspecified site of right female breast (principal); E11.9 Type 2 diabetes mellitus without complications; F41.9 Anxiety disorder, unspecified; E78.5 Hyperlipidemia, unspecified; F03.90 Unspecified dementia, unspecified severity, without behavioral disturbance, psychotic disturbance, mood disturbance, and anxiety; Z90.49 Acquired absence of other specified parts of digestive tract; Z85.038 Personal history of other malignant neoplasm of large intestine; Z79.84 Long term (current) use of oral hypoglycemic drugs; Z79.899 Other long term (current) drug therapy; Z88.0 Allergy status to penicillin
CPT/HCPCS: 82962; 88307; 88341; 88342; 88360; 88377; 93005; 93010; 94762; 97110-GP; 97162-GP; 97535-GP; A9270-GY; J0690; J1100; J1170; J1815; J2405; J2704; J2710; J3010; J3490; J7121; Q9968

== ENCOUNTER 2020-09-12 14:05 | Observation (INO) | payer MEDICARE ==
[2020-09-12] MEDS ORDERED: Ondansetron 4 MG/2 ML SDV IVPUSH ONE (14:37)
[2020-09-12] MEDS ORDERED: Lactated Ringers 1,000 ML IV ONE (14:37)
[2020-09-12] MEDS ORDERED: Sodium Chloride 0.9% 10 ML Syringe FLUSH PRN (14:37)
--- NOTE | 2020-09-12 14:40 | EDM.PDOC ---
ED HPI GENERAL MEDICAL PROBLEM - General Chief Complaint: Gastrointestinal Problem Stated Complaint: THROWING UP, HASNT BEEN TAKING MEDICATION Time Seen by Provider: 09/12/20 14:30 Source of Information: Reports: Patient, Family, RN Notes Reviewed History Limitations: Reports: Physical Impairment (Dementia) - History of Present Illness INITIAL COMMENTS - FREE TEXT/NARRATIVE: 74-year-old female presents emergency department with a complaint of weakness. Family members state that she was doing fine yesterday so weak she could not get out of bed until 10:00 this morning. She had 1 bout of emesis she does have a known history of dementia difficult to obtain history from her majority of this is taken from chart review and from family members. Apparently she has not had any fevers denies any chest pain shortness of breath no difficulties with urination - Related Data Allergies Allergy/AdvReac Type Severity Reaction Status Date / Time amoxicillin [Amoxicillin] Allergy Rash Verified 09/12/20 14:21 Iodinated Contrast Media Allergy Itching Verified 09/12/20 14:21 [Iodinated Contrast Media - IV Dye] seafood Allergy Other Uncoded 09/12/20 14:21 Home Meds: Home Meds metFORMIN [Glucophage] 500 mg PO DAILY 12/07/13 [History] Memantine [Namenda] 10 mg PO BID 02/16/17 [History] Sertraline HCl 100 mg PO DAILY 02/16/17 [History] atorvaSTATin [Lipitor] 20 mg PO BEDTIME 02/16/17 [History] Psyllium with Sucrose [Metamucil] 1 pack PO DAILY 02/18/17 [History] Aspirin [Adult Low Dose Aspirin EC] 81 mg PO DAILY 12/22/19 [History] Hawkins-3/DHA/Epa/Fish Oil [Hawkins 3 500 Softgel] 1,000 mg PO DAILY 12/22/19 [History] Acetaminophen [Tylenol] 650 mg PO Q6H tablet 12/28/19 [Rx] Magnesium Hydroxide [Milk of Magnesia] 30 ml PO DAILY PRN #30 ml 12/28/19 [Rx] Letrozole 2.5 mg PO DAILY 09/12/20 [History] Past Medical History HEENT History: Reports: Hard of Hearing, Impaired Vision Other HEENT History: denture upper and lower; wears glasses Cardiovascular History: Reports: Blood Clots/VTE/DVT Gastrointestinal History: Reports: Colon Polyp, Hepatitis Other Gastrointestinal History: colon cancer-resection 2012 Genitourinary History: Reports: UTI, Recurrent ORTHOTIC/PROSTHETIC PRACTITIONER History: Reports: Neurological History: Reports: Other (See Below) Other Neuro History: memory loss dementia Psychiatric History: Reports: Dementia, Depression Endocrine/Metabolic History: Reports: Diabetes, Type II, Obesity/BMI 30+ Hematologic History: Reports: Blood Transfusion(s) Oncologic (Cancer) History: Reports: Breast, Colon - Infectious Disease History Infectious Disease History: Reports: Chicken Pox, Measles, Mumps - Past Surgical History HEENT Surgical History: Reports: Oral Surgery, Tonsillectomy GI Surgical History: Reports: Appendectomy, Cholecystectomy, Colon, Colonoscopy, Polypectomy Female Surgical History: Reports: Hysterectomy, Salpingo-Oophorectomy Endocrine Surgical History: Reports: None Neurological Surgical History: Reports: None Oncologic Surgical History: Reports: Other (See Below) Other Oncologic Surgeries/Procedures: colon resection Dermatological Surgical History: Reports: None Social & Family History - Family History Cardiac: Reports: [place] Endocrine/Metabolic: Reports: Diabetes, Type I Oncologic: Reports: Breast - Tobacco Use Tobacco Use Status *Q: Never Tobacco User - Caffeine Use Caffeine Use: Reports: Tea Caffeine Use Comment: 1 cup daily ED ROS GENERAL - Review of Systems Review Of Systems: Unable To Obtain Reason Not Obtained: Limited because obtained from family members Constitutional: Reports: Weakness, Fatigue. Denies: Fever, Chills HEENT: Reports: No Symptoms Respiratory: Reports: No Symptoms Cardiovascular: Reports: No Symptoms GI/Abdominal: Reports: Vomiting. Denies: Nausea : Reports: No Symptoms ED EXAM, NEURO - Physical Exam Exam: See Below Exam Limited By: Physical Impairment (Dementia) General Appearance: Alert, WD/WN, No Apparent Distress Respiratory/Chest: No Respiratory Distress, Lungs Clear, Normal Breath Sounds, No Accessory Muscle Use, Chest Non-Tender Cardiovascular: Regular Rate, Rhythm, No Murmur GI/Abdominal: Soft, Non-Tender Extremities: No Pedal Edema Course - Vital Signs Last Recorded V/S: Last Vital Signs Temp 97.7 F 09/12/20 14:19 Pulse 88 09/12/20 16:22 Resp 9 L 09/12/20 16:22 BP 137/73 09/12/20 16:22 Pulse Ox 97 09/12/20 16:22 - Orders/Labs/Meds Orders: Active Orders 24 hr Category Date Time Status EKG Documentation Completion [RC] ASDIRECTED Care 09/12/20 16:08 Active Peripheral IV Care [RC] . DIRECTED Care 09/12/20 14:37 Active Chest 2V [CR] Urgent Exams 09/12/20 15:26 Taken CULTURE URINE [RM] Urgent Lab 09/12/20 16:26 Ordered Sodium Chloride 0.9% [Saline Flush] Med 09/12/20 14:37 Active 10 ml FLUSH ASDIRECTED PRN Peripheral IV Insertion Adult [OM.PC] Urgent Oth 09/12/20 14:37 Ordered EKG 12 Lead [EK] Stat Ther 09/12/20 16:07 Ordered Medication Orders Sodium Chloride (Sodium Chloride 0.9% 10 Ml Syringe) 10 ml FLUSH ASDIRECTED PRN PRN Reason: Keep Vein Open Last Admin: 09/12/20 14:54 Dose: 10 ml Documented by: DASHAWN Labs: Laboratory Tests 09/12/20 09/12/20 09/12/20 Range/Units 14:47 14:47 14:47 WBC 5.9 (4.5-11.0) K/uL RBC 4.05 (3.30-5.50) M/uL Hgb 12.6 (12.0-15.0) g/dL Hct 38.7 (36.0-48.0) % MCV 96 (80-98) fL MCH 31 (27-31) pg MCHC 33 (32-36) % Plt Count 257 (150-400) K/uL Neut % (Auto) 79 H (36-66) % Lymph % (Auto) 15 L (24-44) % [place] % (Auto) 6 (2-6) % Eos % (Auto) 1 L (2-4) % Baso % (Auto) 1 (0-1) % Sodium 140 (140-148) mmol/L Potassium 4.5 (3.6-5.2) mmol/L Chloride 102 (100-108) mmol/L Carbon Dioxide 27 (21-32) mmol/L Anion Gap 11.0 (5.0-14.0) mmol/L BUN 15 (7-18) mg/dL Creatinine 1.0 (0.6-1.0) mg/dL Est Cr Clr Drug Dosing 32.53 mL/min Estimated GFR (MDRD) 53 L (>60) Glucose 160 H (74-106) mg/dL Lactic Acid 1.3 (0.4-2.0) mmol/L Calcium 9.9 (8.5-10.1) mg/dL Total Bilirubin 0.4 (0.2-1.0) mg/dL AST 23 (15-37) U/L ALT 28 (12-78) U/L Alkaline Phosphatase 116 (46-116) U/L Troponin I 0.031 (0.000-0.056) ng/mL Total Protein 7.4 (6.4-8.2) g/dL Albumin 3.8 (3.4-5.0) g/dL Globulin 3.6 H (2.3-3.5) g/dL Albumin/Globulin Ratio 1.1 L (1.2-2.2) Lipase 106 (73-393) U/L TSH, Ultra Sensitive 1.174 (0.358-3.740) uIU/mL Urine Color (YELLOW) Urine Appearance (CLEAR) Urine pH (5.0-8.0) Ur Specific [place] (1.008-1.030) Urine Protein (NEGATIVE) mg/dL Urine Glucose (UA) (NEGATIVE) mg/dL Urine Ketones (NEGATIVE) mg/dL Urine Occult Blood (NEGATIVE) Urine Nitrite (NEGATIVE) Urine Bilirubin (NEGATIVE) Urine Urobilinogen (0.2-1.0) EU/dL Ur Leukocyte Esterase (NEGATIVE) Urine RBC (0-5) Urine WBC (0-5) Ur Epithelial Cells Amorphous Sediment Urine Bacteria Urine Mucus 09/12/20 Range/Units 15:56 WBC (4.5-11.0) K/uL RBC (3.30-5.50) M/uL Hgb (12.0-15.0) g/dL Hct (36.0-48.0) % MCV (80-98) fL MCH (27-31) pg MCHC (32-36) % Plt Count (150-400) K/uL Neut % (Auto) (36-66) % Lymph % (Auto) (24-44) % [place] % (Auto) (2-6) % Eos % (Auto) (2-4) % Baso % (Auto) (0-1) % Sodium (140-148) mmol/L Potassium (3.6-5.2) mmol/L Chloride (100-108) mmol/L Carbon Dioxide (21-32) mmol/L Anion Gap (5.0-14.0) mmol/L BUN (7-18) mg/dL Creatinine (0.6-1.0) mg/dL Est Cr Clr Drug Dosing mL/min Estimated GFR (MDRD) (>60) Glucose (74-106) mg/dL Lactic Acid (0.4-2.0) mmol/L Calcium (8.5-10.1) mg/dL Total Bilirubin (0.2-1.0) mg/dL AST (15-37) U/L ALT (12-78) U/L Alkaline Phosphatase (46-116) U/L Troponin I (0.000-0.056) ng/mL Total Protein (6.4-8.2) g/dL Albumin (3.4-5.0) g/dL Globulin (2.3-3.5) g/dL Albumin/Globulin Ratio (1.2-2.2) Lipase (73-393) U/L TSH, Ultra Sensitive (0.358-3.740) uIU/mL Urine Color Yellow (YELLOW) Urine Appearance Cloudy A (CLEAR) Urine pH 8.0 (5.0-8.0) Ur Specific [place] 1.020 (1.008-1.030) Urine Protein 30 H (NEGATIVE) mg/dL Urine Glucose (UA) Negative (NEGATIVE) mg/dL Urine Ketones Negative (NEGATIVE) mg/dL Urine Occult Blood Trace-intact H (NEGATIVE) Urine Nitrite Negative (NEGATIVE) Urine Bilirubin Negative (NEGATIVE) Urine Urobilinogen 0.2 (0.2-1.0) EU/dL Ur Leukocyte Esterase Negative (NEGATIVE) Urine RBC 5-10 H (0-5) Urine WBC 5-10 H (0-5) Ur Epithelial Cells Few Amorphous Sediment Not seen Urine Bacteria Many Urine Mucus Not seen Meds: Medications Generic Name Dose Route Start Last Admin Trade Name Freq PRN Reason Stop Dose Admin Sodium Chloride 10 ml 09/12/20 14:37 09/12/20 14:54 Sodium Chloride 0.9% 10 Ml Syringe FLUSH 10 ml ASDIRECTED PRN Administration Keep Vein Open Discontinued Medications Generic Name Dose Route Start Last Admin Trade Name Freq PRN Reason Stop Dose Admin Lactated Ringer's 1,000 mls @ 999 mls/hr 09/12/20 14:37 09/12/20 14:51 Ringers, Lactated IV 09/12/20 15:37 999 mls/hr BOLUS ONE Administration Ondansetron HCl 4 mg 09/12/20 14:37 09/12/20 14:51 Ondansetron 4 Mg/2 Ml Sdv IVPUSH 09/12/20 14:38 4 mg ONETIME ONE Administration Departure - Departure Time of Disposition: 16:36 Disposition: Admitted As Inpatient 65 Condition: Fair Clinical Impression: Urinary tract infection Qualifiers: Urinary tract infection type: acute cystitis Hematuria presence: with hematuria Qualified Code(s): N30.01 - Acute cystitis with hematuria - Discharge Information Referrals: Phan Kamara NP [Primary Care Provider] - Forms: ED Department Discharge Sepsis Event Note (ED) - Evaluation Sepsis Screening Result: No Definite Risk - Focused Exam Vital Signs: Vital Signs Temp Pulse Resp BP Pulse Ox 09/12/20 16:22 88 9 L 137/73 97 09/12/20 14:19 97.7 F 70 16 172/85 H 96 - My Orders Last 24 Hours: My Active Orders 09/12/20 14:37 Peripheral IV Care [RC] . DIRECTED Sodium Chloride 0.9% [Saline Flush] 10 ml FLUSH ASDIRECTED PRN Peripheral IV Insertion Adult [OM.PC] Urgent 09/12/20 15:26 Chest 2V [CR] Urgent 09/12/20 16:07 EKG 12 Lead [EK] Stat 09/12/20 16:08 EKG Documentation Completion [RC] ASDIRECTED 09/12/20 16:26 CULTURE URINE [RM] Urgent - Assessment/Plan Last 24 Hours: My Active Orders 09/12/20 14:37 Peripheral IV Care [RC] . DIRECTED Sodium Chloride 0.9% [Saline Flush] 10 ml FLUSH ASDIRECTED PRN Peripheral IV Insertion Adult [OM.PC] Urgent 09/12/20 15:26 Chest 2V [CR] Urgent 09/12/20 16:07 EKG 12 Lead [EK] Stat 09/12/20 16:08 EKG Documentation Completion [RC] ASDIRECTED 09/12/20 16:26 CULTURE URINE [RM] Urgent Plan: Assessment Acuity = acute Site and laterality = urinary tract infection with new onset atrial fibrillation complicating the patient with history of dementia questionable history of not taking medications Etiology = probable bacterial cause for urinary tract infection Manifestations = weakness Location of injury = Home Lab values = CBC CMP thyroid within normal limits troponin is 0.037 within the normal range EKG demonstrates atrial fibrillation there is no ST elevations or depressions, chest x-ray I did review films myself I cannot appreciate any acute process, the official read from radiology is pending urinalysis reveals 5-10 RBCs 5-10 WBCs consistent with hematuria and pyuria respectively Plan Call discussed case with hospitalist on-call at [id number] he kindly agreed to come the emergency department evaluate the patient for admission This note was dictated using [email or web address] voice recognition software please call with any questions on syntax or grammar.
--- NOTE | 2020-09-12 16:46 | CRLCR ---
INDICATION: Hypoxia. TECHNIQUE: Upright AP and lateral. COMPARISON: None. FINDINGS: AP image lordotic. Lungs and pleural spaces clear. Heart size and pulmonary vasculature within normal limits. No significant osseous abnormality. IMPRESSION: Negative chest. Dictated by Salty Carreno MD @ Sep 12 2020 4:42PM Signed by Dr. Salty Carreno @ Sep 12 2020 4:43PM
--- NOTE | 2020-09-12 17:25 | PCM.HP.2 ---
H&P History of Present Illness - General Date of Service: 09/12/20 Admit Problem/Dx: Admission Diagnosis/Problem Admission Diagnosis/Problem Acute cystitis without hematuria Source of Information: Family, Provider, RN. No: Patient History Limitations: Reports: Altered Mental Status (dementia ) - History of Present Illness Initial Comments - Free Text/Narative: CC: weak HPI: Lori presents to the emergency room today with weakness. History is extremely difficult because of her advanced dementia. History is gathered from her by emergency room personnel. He reports that he has not taken her pills for several days. Did not clear why this is the case. She seemed fairly normal yesterday but today was too weak to get out of bed. She did have an episode of emesis. At the time of my evaluation she says that she feels okay and offers no specific complaints. She is not sure if she vomited today or not. She does mention that her left shoulder aches a little bit. She is not sure if she has been having bowel movements regularly or not. She is not sure if she has been eating normally or not. She does not feel short of breath at this moment. Work-up in the emergency room revealed atrial fibrillation with mild tachycardia. Laboratory studies were reassuring. Chest x-ray was clear. Urinalysis moderately suggestive of infection. This has been set up for culture. She is can be admitted for cardiac monitoring and management of presumed urinary tract infection with weakness. - Related Data Allergies/Adverse Reactions: Allergies Allergy/AdvReac Type Severity Reaction Status Date / Time amoxicillin [Amoxicillin] Allergy Rash Verified 09/12/20 14:21 Iodinated Contrast Media Allergy Itching Verified 09/12/20 14:21 [Iodinated Contrast Media - IV Dye] seafood Allergy Other Uncoded 09/12/20 14:21 Home Medications: Home Meds metFORMIN [Glucophage] 500 mg PO DAILY 12/07/13 [History] Memantine [Namenda] 10 mg PO BID 02/16/17 [History] Sertraline HCl 100 mg PO DAILY 02/16/17 [History] atorvaSTATin [Lipitor] 20 mg PO BEDTIME 02/16/17 [History] Psyllium with Sucrose [Metamucil] 1 pack PO DAILY 02/18/17 [History] Aspirin [Adult Low Dose Aspirin EC] 81 mg PO DAILY 12/22/19 [History] [place]-3/DHA/Epa/Fish Oil [[place] 3 500 Softgel] 1,000 mg PO DAILY 12/22/19 [History] Acetaminophen [Tylenol] 650 mg PO Q6H tablet 12/28/19 [Rx] Magnesium Hydroxide [Milk of Magnesia] 30 ml PO DAILY PRN #30 ml 12/28/19 [Rx] Letrozole 2.5 mg PO DAILY 09/12/20 [History] Past Medical History HEENT History: Reports: Hard of Hearing, Impaired Vision Other HEENT History: denture upper and lower; wears glasses Cardiovascular History: Reports: Blood Clots/VTE/DVT Gastrointestinal History: Reports: Colon Polyp, Hepatitis Other Gastrointestinal History: colon cancer-resection 2012 Genitourinary History: Reports: UTI, Recurrent 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: Neurological History: Reports: Other (See Below) Other Neuro History: memory loss dementia Psychiatric History: Reports: Dementia, Depression Endocrine/Metabolic History: Reports: Diabetes, Type II, Obesity/BMI 30+ Hematologic History: Reports: Blood Transfusion(s) Oncologic (Cancer) History: Reports: Breast, Colon - Infectious Disease History Infectious Disease History: Reports: Chicken Pox, Measles, Mumps - Past Surgical History HEENT Surgical History: Reports: Oral Surgery, Tonsillectomy GI Surgical History: Reports: Appendectomy, Cholecystectomy, Colon, Colonoscopy, Polypectomy Female Surgical History: Reports: Hysterectomy, Salpingo-Oophorectomy Endocrine Surgical History: Reports: None Neurological Surgical History: Reports: None Oncologic Surgical History: Reports: Other (See Below) Other Oncologic Surgeries/Procedures: colon resection Dermatological Surgical History: Reports: None Social & Family History - Family History Cardiac: Reports: AR Endocrine/Metabolic: Reports: Diabetes, Type I Oncologic: Reports: Breast - Tobacco Use Tobacco Use Status *Q: Never Tobacco User - Caffeine Use Caffeine Use: Reports: Tea Caffeine Use Comment: 1 cup daily - Alcohol Use Alcohol Use History: No H&P Review of Systems - Review of Systems: Review Of Systems: Unable To Obtain Reason Not Obtained: Advanced dementia Exam - Exam Exam: See Below - Vital Signs Vital Signs: Last Vital Signs Temp 36.5 C 09/12/20 14:19 Pulse 88 09/12/20 16:22 Resp 9 L 09/12/20 16:22 BP 137/73 09/12/20 16:22 Pulse Ox 97 03/24/21 16:22 Weight: 85.275 kg - Exam Quality Assessment: No: Supplemental Oxygen General: Alert, Cooperative. No: Oriented, Mild Distress HEENT: Conjunctiva Clear, Mucosa Moist & [place]. No: Scleral Icterus Neck: Supple, Trachea Midline Lungs: Clear to Auscultation, Normal Respiratory Effort Cardiovascular: Irregular Rhythm, Tachycardia. No: Systolic Murmur, Diastolic Murmur GI/Abdominal Exam: Normal Bowel Sounds, Soft, No Distention, Tender (Mild suprapubic) Extremities: No Pedal Edema. No: Joint Swelling, Increased Warmth Peripheral Pulses: 2+: Dorsalis Pedis (L), Dorsalis Pedis (R) Skin: Warm, Dry. No: Rash Neuro Extensive - Mental Status: Alert, Memory Loss-Remote Events, Memory Loss- Recent Events. No: Oriented x3, Memory Intact Neuro Extensive - Motor, Sensory, Reflexes: No: Dysarthria, Abnormal Motor, Tremor Psychiatric: Alert, Normal Affect. No: Agitated - Patient Data Lab Results Last 24 hrs: Laboratory Results - last 24 hr 09/12/20 09/12/20 09/12/20 Range/Units 14:47 14:47 14:47 WBC 5.9 (4.5-11.0) K/uL RBC 4.05 (3.30-5.50) M/uL Hgb 12.6 (12.0-15.0) g/dL Hct 38.7 (36.0-48.0) % MCV 96 (80-98) fL MCH 31 (27-31) pg MCHC 33 (32-36) % Plt Count 257 (150-400) K/uL Neut % (Auto) 79 H (36-66) % Lymph % (Auto) 15 L (24-44) % Edmunds % (Auto) 6 (2-6) % Eos % (Auto) 1 L (2-4) % Baso % (Auto) 1 (0-1) % Sodium 140 (140-148) mmol/L Potassium 4.5 (3.6-5.2) mmol/L Chloride 102 (100-108) mmol/L Carbon Dioxide 27 (21-32) mmol/L Anion Gap 11.0 (5.0-14.0) mmol/L BUN 15 (7-18) mg/dL Creatinine 1.0 (0.6-1.0) mg/dL Est Cr Clr Drug Dosing 32.53 mL/min Estimated GFR (MDRD) 53 L (>60) Glucose 160 H (74-106) mg/dL Lactic Acid 1.3 (0.4-2.0) mmol/L Calcium 9.9 (8.5-10.1) mg/dL Total Bilirubin 0.4 (0.2-1.0) mg/dL AST 23 (15-37) U/L ALT 28 (12-78) U/L Alkaline Phosphatase 116 (46-116) U/L Troponin I 0.031 (0.000-0.056) ng/mL Total Protein 7.4 (6.4-8.2) g/dL Albumin 3.8 (3.4-5.0) g/dL Globulin 3.6 H (2.3-3.5) g/dL Albumin/Globulin Ratio 1.1 L (1.2-2.2) Lipase 106 (73-393) U/L TSH, Ultra Sensitive 1.174 (0.358-3.740) uIU/mL Urine Color (YELLOW) Urine Appearance (CLEAR) Urine pH (5.0-8.0) Ur Specific Serena (1.008-1.030) Urine Protein (NEGATIVE) mg/dL Urine Glucose (UA) (NEGATIVE) mg/dL Urine Ketones (NEGATIVE) mg/dL Urine Occult Blood (NEGATIVE) Urine Nitrite (NEGATIVE) Urine Bilirubin (NEGATIVE) Urine Urobilinogen (0.2-1.0) EU/dL Ur Leukocyte Esterase (NEGATIVE) Urine RBC (0-5) Urine WBC (0-5) Ur Epithelial Cells Amorphous Sediment Urine Bacteria Urine Mucus 09/12/20 Range/Units 15:56 WBC (4.5-11.0) K/uL RBC (3.30-5.50) M/uL Hgb (12.0-15.0) g/dL Hct (36.0-48.0) % MCV (80-98) fL MCH (27-31) pg MCHC (32-36) % Plt Count (150-400) K/uL Neut % (Auto) (36-66) % Lymph % (Auto) (24-44) % Edmunds % (Auto) (2-6) % Eos % (Auto) (2-4) % Baso % (Auto) (0-1) % Sodium (140-148) mmol/L Potassium (3.6-5.2) mmol/L Chloride (100-108) mmol/L Carbon Dioxide (21-32) mmol/L Anion Gap (5.0-14.0) mmol/L BUN (7-18) mg/dL Creatinine (0.6-1.0) mg/dL Est Cr Clr Drug Dosing mL/min Estimated GFR (MDRD) (>60) Glucose (74-106) mg/dL Lactic Acid (0.4-2.0) mmol/L Calcium (8.5-10.1) mg/dL Total Bilirubin (0.2-1.0) mg/dL AST (15-37) U/L ALT (12-78) U/L Alkaline Phosphatase (46-116) U/L Troponin I (0.000-0.056) ng/mL Total Protein (6.4-8.2) g/dL Albumin (3.4-5.0) g/dL Globulin (2.3-3.5) g/dL Albumin/Globulin Ratio (1.2-2.2) Lipase (73-393) U/L TSH, Ultra Sensitive (0.358-3.740) uIU/mL Urine Color Yellow (YELLOW) Urine Appearance Cloudy A (CLEAR) Urine pH 8.0 (5.0-8.0) Ur Specific Serena 1.020 (1.008-1.030) Urine Protein 30 H (NEGATIVE) mg/dL Urine Glucose (UA) Negative (NEGATIVE) mg/dL Urine Ketones Negative (NEGATIVE) mg/dL Urine Occult Blood Trace-intact H (NEGATIVE) Urine Nitrite Negative (NEGATIVE) Urine Bilirubin Negative (NEGATIVE) Urine Urobilinogen 0.2 (0.2-1.0) EU/dL Ur Leukocyte Esterase Negative (NEGATIVE) Urine RBC 5-10 H (0-5) Urine WBC 5-10 H (0-5) Ur Epithelial Cells Few Amorphous Sediment Not seen Urine Bacteria Many Urine Mucus Not seen Result Diagrams: 09/12/20 14:47 09/12/20 14:47 Imaging Impressions Last 24 hrs: Chest [id number] personally reviewed-lungs are clear with no mass, infiltrate or effusion. Heart size is mildly enlarged. #1 Interpretation EKG Date: 09/12/20 Rhythm: A-Fib Rate (Beats/Min): 106 [place]: Normal P-Wave: Variable QRS: Normal ST-T: Normal QT: Normal EKG Interpretation Comments: I did personally review this EKG image in the emergency room at 1715 Sepsis Event Note - Evaluation Sepsis Screening Result: No Definite Risk - Focused Exam Vital Signs: Vital Signs Temp Pulse Resp BP Pulse Ox 09/12/20 16:22 88 9 L 137/73 97 09/12/20 14:19 36.5 C 70 16 172/85 H 96 *Q Meaningful Use (ADM) - VTE Risk Assess *Q Each Risk Factor Represents 1 Point: Obesity ( BMI > 25 kg/m2) Total Score 1 Point Risk Factors: 1 Each Risk Factor Represents 2 Points: Malignancy (present or previous) Total Score 2 Point Risk Factors: 2 Each Risk Factor Represents 3 Points: Age 75 Years or Greater, History of DVT/PE Total Score 3 Point Risk Factors: 6 Each Risk Factor Represents 5 Points: None Total Score 5 Point Risk Factors: 0 Venous Thromboembolism Risk Factor Score *Q: 9 - Problem List (1) Acute cystitis without hematuria SNOMED Code(s): 53150257 ICD Code: N30.00 - ACUTE CYSTITIS WITHOUT HEMATURIA Status: Acute Current Visit: Yes (2) Atrial fibrillation with RVR SNOMED Code(s): 986977342867021 ICD Code: I48.91 - UNSPECIFIED ATRIAL FIBRILLATION Status: Acute Current Visit: Yes (3) Weakness SNOMED Code(s): 48581903 ICD Code: R53.1 - WEAKNESS Status: Acute Current Visit: No (4) Type 2 diabetes mellitus SNOMED Code(s): 21025815 ICD Code: E11.9 - TYPE 2 DIABETES MELLITUS WITHOUT COMPLICATIONS Status: Chronic Current Visit: No Qualifiers: 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: without termite treater helper use Diabetes mellitus complication status: without complication Qualified Code(s): E11.9 - Type 2 diabetes mellitus without complications (5) Dementia SNOMED Code(s): 72723296 ICD Code: F03.90 - UNSPECIFIED DEMENTIA WITHOUT BEHAVIORAL DISTURBANCE Status: Chronic Current Visit: No Qualifiers: Dementia type: Alzheimer's Alzheimer's disease onset: late-onset Dementia behavioral disturbance: without behavioral disturbance Qualified Code(s): G 30.1 - Alzheimer's disease with late onset; F02.80 - Dementia in other diseases classified elsewhere without behavioral disturbance Problem List Initiated/Reviewed/Updated: Yes Orders Last 24hrs: Active Orders 24 hr Category Date Time Status Patient Status Manage Transfer [TRANSFER] Routine ADT 09/12/20 17:08 Ordered EKG Documentation Completion [RC] ASDIRECTED Care 09/12/20 16:08 Active Peripheral IV Care [RC] . DIRECTED Care 09/12/20 14:37 Active CULTURE URINE [RM] Urgent Lab 09/12/20 16:29 Received Sodium Chloride 0.9% [Saline Flush] Med 09/12/20 14:37 Active 10 ml FLUSH ASDIRECTED PRN Peripheral IV Insertion Adult [OM.PC] Urgent Oth 09/12/20 14:37 Ordered Resuscitation Status Routine Resus Stat 09/12/20 17:11 Ordered EKG 12 Lead [EK] Stat Ther 09/12/20 16:07 Ordered Medication Orders Sodium Chloride (Sodium Chloride 0.9% 10 Ml Syringe) 10 ml FLUSH ASDIRECTED PRN PRN Reason: Keep Vein Open Last Admin: 09/12/20 14:54 Dose: 10 ml Documented by: DASHAWN Assessment/Plan Comment:: ASSESSMENT AND PLAN - Acute cystitis without hematuria-infection suspected based on urinalysis. This could explain weakness as well as the episode of vomiting. Patient does not report symptoms though this is quite limited because of her dementia. No other source for infection. -Ceftriaxone -Follow-up culture -Physical therapy Atrial fibrillation-mildly tachycardic. Duration unclear. CHADSS-VASC >2 but high risk for anticoagulation with recent falls. -Consider low-dose metoprolol if she remains tachycardic -Discuss anticoagulation with family tomorrow -Cardiac monitoring Alzheimer's dementia without behavioral disturbance-no issues at this time. -Continue home medications -Melatonin at bedtime Type 2 diabetes mellitus-not insulin-dependent. Blood sugar normal today. -Continue Metformin Maintenance issues - - DVT prophylaxis -enoxaparin - GI prophylaxis -not indicated - Nutrition -diabetic diet - Peters catheter -not indicated CODE STATUS -full code presumed, unable to locate advanced directive, family not sure of CODE STATUS Admission justification -patient will be referred to observation status for antibiotic initiation and cardiac monitoring Disposition -I would anticipate discharge home with home care after the hospital stay Primary care physician - Phan Sanchez M.D. - Mortality Measure Prognosis:: Good
[2020-09-12] MEDS ORDERED: LORazepam 2 MG/ML SDV IVPUSH PRN (17:44)
[2020-09-12] MEDS ORDERED: Magnesium Hydroxide 400 MG/5 ML Susp 30 ML Cup PO PRN (17:44)
[2020-09-12] MEDS ORDERED: Ondansetron 4 MG/2 ML SDV IV PRN (17:44)
[2020-09-12] MEDS ORDERED: Acetaminophen 325 MG Tab PO PRN (17:44)
[2020-09-12] MEDS ORDERED: Ondansetron 4 MG Tab.DIS PO PRN (17:44)
[2020-09-12] MEDS: cefTRIAXone 1 GM in Sodium Chloride 0.9% 50 ML IV SCH (20:17)
[2020-09-12] MEDS: Enoxaparin 40 MG/0.4 ML Syringe SUBCUT SCH (20:18)
--- NOTE | 2020-09-12 20:19 | PCM.SN.2 ---
- Free Text/Narrative Note: time: [address] [place] [address], Mrs. Ackerman was briefly in A-fib without any changes in vital signs or chest pain. She has converted to NR without any intervention. vital signs 98.2-75-14 B/P 123/66 O2 sat 95% A: Atrial Fib p: converted to sinus R. without intervention. will continue to monitor
[2020-09-12] MEDS: Lactobacillus Rhamnosus GG (Probiotic) Cap PO SCH (20:30)
[2020-09-12] MEDS: Melatonin 3 MG Tab PO SCH (20:30)
[2020-09-12] MEDS: Acetaminophen 325 MG Tab PO SCH (20:30)
[2020-09-12] MEDS: ATORVASTATIN 20 MG PO SCH (22:01)
[2020-09-12] MEDS: NAMENDA 10 MG PO SCH (22:01)
[2020-09-13] MEDS: Aspirin 81 MG Tab.EC PO SCH (08:29)
[2020-09-13] MEDS: Lactobacillus Rhamnosus GG (Probiotic) Cap PO SCH ×2 (08:29→20:52)
[2020-09-13] MEDS: Acetaminophen 325 MG Tab PO SCH ×3 (08:30→20:53)
[2020-09-13] MEDS: NAMENDA 10 MG PO SCH ×2 (08:32→20:51)
[2020-09-13] MEDS ORDERED: LETROZOLE 2.5 MG PO SCH (09:00)
--- NOTE | 2020-09-13 10:47 | PCM.PN ---
- General Info Date of Service: 09/13/20 Subjective Update: There were no acute events overnight. The patient converted to normal sinus rhythm around 7 PM without any intervention. History is limited because of her dementia. She does not currently report any nausea or abdominal pain. She ate a good breakfast. Urine culture is growing a gram-negative deana but identification is pending. Functional Status: Reports: Pain Controlled - Patient Data Vitals - Most Recent: Last Vital Signs Temp 36.9 C 09/13/20 07:30 Pulse 73 09/13/20 07:30 Resp 18 09/13/20 07:30 BP 116/55 L 09/13/20 07:30 Pulse Ox 98 09/13/20 07:30 Weight - Most Recent: 85.275 kg I&O - Last 24 Hours: Intake & Output 09/12/20 09/13/20 09/13/20 22:59 06:59 14:59 Intake Total 550 340 Output Total 200 100 200 Balance -200 450 140 Lab Results Last 24 Hours: Laboratory Results - last 24 hr 09/12/20 09/12/20 09/12/20 Range/Units 14:47 14:47 14:47 WBC 5.9 (4.5-11.0) K/uL RBC 4.05 (3.30-5.50) M/uL Hgb 12.6 (12.0-15.0) g/dL Hct 38.7 (36.0-48.0) % MCV 96 (80-98) fL MCH 31 (27-31) pg MCHC 33 (32-36) % Plt Count 257 (150-400) K/uL Neut % (Auto) 79 H (36-66) % Lymph % (Auto) 15 L (24-44) % [place] % (Auto) 6 (2-6) % Eos % (Auto) 1 L (2-4) % Baso % (Auto) 1 (0-1) % Sodium 140 (140-148) mmol/L Potassium 4.5 (3.6-5.2) mmol/L Chloride 102 (100-108) mmol/L Carbon Dioxide 27 (21-32) mmol/L Anion Gap 11.0 (5.0-14.0) mmol/L BUN 15 (7-18) mg/dL Creatinine 1.0 (0.6-1.0) mg/dL Est Cr Clr Drug Dosing 32.53 mL/min Estimated GFR (MDRD) 53 L (>60) Glucose 160 H (74-106) mg/dL Lactic Acid 1.3 (0.4-2.0) mmol/L Calcium 9.9 (8.5-10.1) mg/dL Total Bilirubin 0.4 (0.2-1.0) mg/dL AST 23 (15-37) U/L ALT 28 (12-78) U/L Alkaline Phosphatase 116 (46-116) U/L Troponin I 0.031 (0.000-0.056) ng/mL Total Protein 7.4 (6.4-8.2) g/dL Albumin 3.8 (3.4-5.0) g/dL Globulin 3.6 H (2.3-3.5) g/dL Albumin/Globulin Ratio 1.1 L (1.2-2.2) Lipase 106 (73-393) U/L TSH, Ultra Sensitive 1.174 (0.358-3.740) uIU/mL Urine Color (YELLOW) Urine Appearance (CLEAR) Urine pH (5.0-8.0) Ur Specific [place] (1.008-1.030) Urine Protein (NEGATIVE) mg/dL Urine Glucose (UA) (NEGATIVE) mg/dL Urine Ketones (NEGATIVE) mg/dL Urine Occult Blood (NEGATIVE) Urine Nitrite (NEGATIVE) Urine Bilirubin (NEGATIVE) Urine Urobilinogen (0.2-1.0) EU/dL Ur Leukocyte Esterase (NEGATIVE) Urine RBC (0-5) Urine WBC (0-5) Ur Epithelial Cells Amorphous Sediment Urine Bacteria Urine Mucus 09/12/20 09/13/20 09/13/20 Range/Units 15:56 04:19 04:19 WBC 6.2 (4.5-11.0) K/uL RBC 3.81 (3.30-5.50) M/uL Hgb 11.8 L (12.0-15.0) g/dL Hct 36.9 (36.0-48.0) % MCV 97 (80-98) fL MCH 31 (27-31) pg MCHC 32 (32-36) % Plt Count 237 (150-400) K/uL Neut % (Auto) (36-66) % Lymph % (Auto) (24-44) % [place] % (Auto) (2-6) % Eos % (Auto) (2-4) % Baso % (Auto) (0-1) % Sodium 141 (140-148) mmol/L Potassium 4.0 (3.6-5.2) mmol/L Chloride 104 (100-108) mmol/L Carbon Dioxide 27 (21-32) mmol/L Anion Gap 10.5 (5.0-14.0) mmol/L BUN 15 (7-18) mg/dL Creatinine 1.1 H (0.6-1.0) mg/dL Est Cr Clr Drug Dosing 29.57 mL/min Estimated GFR (MDRD) 47 L (>60) Glucose 121 H (74-106) mg/dL Lactic Acid (0.4-2.0) mmol/L Calcium 9.5 (8.5-10.1) mg/dL Total Bilirubin (0.2-1.0) mg/dL AST (15-37) U/L ALT (12-78) U/L Alkaline Phosphatase (46-116) U/L Troponin I (0.000-0.056) ng/mL Total Protein (6.4-8.2) g/dL Albumin (3.4-5.0) g/dL Globulin (2.3-3.5) g/dL Albumin/Globulin Ratio (1.2-2.2) Lipase (73-393) U/L TSH, Ultra Sensitive (0.358-3.740) uIU/mL Urine Color Yellow (YELLOW) Urine Appearance Cloudy A (CLEAR) Urine pH 8.0 (5.0-8.0) Ur Specific [place] 1.020 (1.008-1.030) Urine Protein 30 H (NEGATIVE) mg/dL Urine Glucose (UA) Negative (NEGATIVE) mg/dL Urine Ketones Negative (NEGATIVE) mg/dL Urine Occult Blood Trace-intact H (NEGATIVE) Urine Nitrite Negative (NEGATIVE) Urine Bilirubin Negative (NEGATIVE) Urine Urobilinogen 0.2 (0.2-1.0) EU/dL Ur Leukocyte Esterase Negative (NEGATIVE) Urine RBC 5-10 H (0-5) Urine WBC 5-10 H (0-5) Ur Epithelial Cells Few Amorphous Sediment Not seen Urine Bacteria Many Urine Mucus Not seen Jeremias Results Last 24 Hours: Microbiology 09/12/20 16:29 Urine Culture - Preliminary Urine, Clean Catch Med Orders - Current: Current Medications Acetaminophen (Acetaminophen 325 Mg Tab) 650 mg PO TID [facility] Last Admin: 09/13/20 08:30 Dose: Not Given Documented by: Acetaminophen (Acetaminophen 325 Mg Tab) 650 mg PO Q4H PRN PRN Reason: Pain (Mild 1-3)/fever Aspirin (Aspirin 81 Mg Tab.Ec) 81 mg PO DAILY [facility] Last Admin: 09/13/20 08:29 Dose: 81 mg Documented by: Enoxaparin Sodium (Enoxaparin 40 Mg/0.4 Ml Syringe) 40 mg SUBCUT Q24H [facility] Last Admin: 09/12/20 20:18 Dose: 40 mg Documented by: Fish Oil (Fish Oil/[place]-3 Fatty Acids 1 Gm Cap) 1 gm PO DAILY [facility] Ceftriaxone Sodium 1 gm/ (Sodium Chloride) 50 mls @ 100 mls/hr IV Q24H [facility] Last Admin: 09/12/20 20:17 Dose: 100 mls/hr Documented by: Lactobacillus Rhamnosus (Lactobacillus Rhamnosus Gg (Probiotic) Cap) 1 cap PO BID [facility] Last Admin: 09/13/20 08:29 Dose: 1 cap Documented by: Lorazepam (Lorazepam 2 Mg/Ml Sdv) 0.5 mg IVPUSH Q4H PRN PRN Reason: Nausea/Vomiting Magnesium Hydroxide (Magnesium Hydroxide 400 Mg/5 Ml Susp 30 Ml Cup) 30 ml PO Q12H PRN PRN Reason: Constipation Melatonin (Melatonin 3 Mg Tab) 9 mg PO BEDTIME [facility] Last Admin: 09/12/20 20:30 Dose: 9 mg Documented by: Metformin HCl (Metformin 500 Mg Tab*Pom*) 500 mg PO DAILY@0800 [facility] (Sertraline Hcl [ Sertraline Hcl] 100mg Tablet) 0 mg PO DAILY [facility] (Letrozole [ Letrozole] 2.5 Mg Tablet)*Pom* 0 mg PO DAILY [facility] Ondansetron HCl (Ondansetron 4 Mg/2 Ml Sdv) 4 mg IV Q6H PRN PRN Reason: Nausea/Vomiting Ondansetron HCl (Ondansetron 4 Mg Tab.Dis) 4 mg PO Q6H PRN PRN Reason: Nausea able to take PO Atorvastatin 20 Mg (Tab *Pt Own Med*) 0 each PO BEDTIME [facility] Last Admin: 09/12/20 22:01 Dose: 1 each Documented by: Namenda 10 Mg Tab * (Pt Own Med*) 0 each PO BID [facility] Last Admin: 09/13/20 08:32 Dose: 1 each Documented by: Psyllium Husk (Psyllium Husk Powder Sugar Free 5.85 Gm Packet) 1 pkt PO DAILY [facility] Senna/Docusate Sodium (Docusate Sodium/Sennosides 50-8.6 Mg Tab) 1 tab PO BID PRN PRN Reason: Constipation Sodium Chloride (Sodium Chloride 0.9% 10 Ml Syringe) 10 ml FLUSH ASDIRECTED PRN PRN Reason: Keep Vein Open Last Admin: 09/12/20 14:54 Dose: 10 ml Documented by: Discontinued Medications Lactated Ringer's (Ringers, Lactated) 1,000 mls @ 999 mls/hr IV BOLUS ONE Stop: 09/12/20 15:37 Last Admin: 09/12/20 14:51 Dose: 999 mls/hr Documented by: (Letrozole [ Letrozole] 2.5 Mg Tablet)*Pom* 2.5 mg PO DAILY [facility] Ondansetron HCl (Ondansetron 4 Mg/2 Ml Sdv) 4 mg IVPUSH ONETIME ONE Stop: 09/12/20 14:38 Last Admin: 09/12/20 14:51 Dose: 4 mg Documented by: - Exam Quality Assessment: Supplemental Oxygen General: Alert, No Acute Distress. No: Oriented Lungs: Normal Respiratory Effort Cardiovascular: Regular Rate, Regular Rhythm GI/Abdominal Exam: Soft, No Distention Extremities: No Pedal Edema Psy/Mental Status: Alert, Normal Affect - Patient Data Lab Results Last 24 hrs: Laboratory Results - last 24 hr 09/12/20 09/12/20 09/12/20 Range/Units 14:47 14:47 14:47 WBC 5.9 (4.5-11.0) K/uL RBC 4.05 (3.30-5.50) M/uL Hgb 12.6 (12.0-15.0) g/dL Hct 38.7 (36.0-48.0) % MCV 96 (80-98) fL MCH 31 (27-31) pg MCHC 33 (32-36) % Plt Count 257 (150-400) K/uL Neut % (Auto) 79 H (36-66) % Lymph % (Auto) 15 L (24-44) % [place] % (Auto) 6 (2-6) % Eos % (Auto) 1 L (2-4) % Baso % (Auto) 1 (0-1) % Sodium 140 (140-148) mmol/L Potassium 4.5 (3.6-5.2) mmol/L Chloride 102 (100-108) mmol/L Carbon Dioxide 27 (21-32) mmol/L Anion Gap 11.0 (5.0-14.0) mmol/L BUN 15 (7-18) mg/dL Creatinine 1.0 (0.6-1.0) mg/dL Est Cr Clr Drug Dosing 32.53 mL/min Estimated GFR (MDRD) 53 L (>60) Glucose 160 H (74-106) mg/dL Lactic Acid 1.3 (0.4-2.0) mmol/L Calcium 9.9 (8.5-10.1) mg/dL Total Bilirubin 0.4 (0.2-1.0) mg/dL AST 23 (15-37) U/L ALT 28 (12-78) U/L Alkaline Phosphatase 116 (46-116) U/L Troponin I 0.031 (0.000-0.056) ng/mL Total Protein 7.4 (6.4-8.2) g/dL Albumin 3.8 (3.4-5.0) g/dL Globulin 3.6 H (2.3-3.5) g/dL Albumin/Globulin Ratio 1.1 L (1.2-2.2) Lipase 106 (73-393) U/L TSH, Ultra Sensitive 1.174 (0.358-3.740) uIU/mL Urine Color (YELLOW) Urine Appearance (CLEAR) Urine pH (5.0-8.0) Ur Specific [place] (1.008-1.030) Urine Protein (NEGATIVE) mg/dL Urine Glucose (UA) (NEGATIVE) mg/dL Urine Ketones (NEGATIVE) mg/dL Urine Occult Blood (NEGATIVE) Urine Nitrite (NEGATIVE) Urine Bilirubin (NEGATIVE) Urine Urobilinogen (0.2-1.0) EU/dL Ur Leukocyte Esterase (NEGATIVE) Urine RBC (0-5) Urine WBC (0-5) Ur Epithelial Cells Amorphous Sediment Urine Bacteria Urine Mucus 09/12/20 09/13/2021 Range/Units 15:56 04:19 04:19 WBC 6.2 (4.5-11.0) K/uL RBC 3.81 (3.30-5.50) M/uL Hgb 11.8 L (12.0-15.0) g/dL Hct 36.9 (36.0-48.0) % MCV 97 (80-98) fL MCH 31 (27-31) pg MCHC 32 (32-36) % Plt Count 237 (150-400) K/uL Neut % (Auto) (36-66) % Lymph % (Auto) (24-44) % [place] % (Auto) (2-6) % Eos % (Auto) (2-4) % Baso % (Auto) (0-1) % Sodium 141 (140-148) mmol/L Potassium 4.0 (3.6-5.2) mmol/L Chloride 104 (100-108) mmol/L Carbon Dioxide 27 (21-32) mmol/L Anion Gap 10.5 (5.0-14.0) mmol/L BUN 15 (7-18) mg/dL Creatinine 1.1 H (0.6-1.0) mg/dL Est Cr Clr Drug Dosing 29.57 mL/min Estimated GFR (MDRD) 47 L (>60) Glucose 121 H (74-106) mg/dL Lactic Acid (0.4-2.0) mmol/L Calcium 9.5 (8.5-10.1) mg/dL Total Bilirubin (0.2-1.0) mg/dL AST (15-37) U/L ALT (12-78) U/L Alkaline Phosphatase (46-116) U/L Troponin I (0.000-0.056) ng/mL Total Protein (6.4-8.2) g/dL Albumin (3.4-5.0) g/dL Globulin (2.3-3.5) g/dL Albumin/Globulin Ratio (1.2-2.2) Lipase (73-393) U/L TSH, Ultra Sensitive (0.358-3.740) uIU/mL Urine Color Yellow (YELLOW) Urine Appearance Cloudy A (CLEAR) Urine pH 8.0 (5.0-8.0) Ur Specific [place] 1.020 (1.008-1.030) Urine Protein 30 H (NEGATIVE) mg/dL Urine Glucose (UA) Negative (NEGATIVE) mg/dL Urine Ketones Negative (NEGATIVE) mg/dL Urine Occult Blood Trace-intact H (NEGATIVE) Urine Nitrite Negative (NEGATIVE) Urine Bilirubin Negative (NEGATIVE) Urine Urobilinogen 0.2 (0.2-1.0) EU/dL Ur Leukocyte Esterase Negative (NEGATIVE) Urine RBC 5-10 H (0-5) Urine WBC 5-10 H (0-5) Ur Epithelial Cells Few Amorphous Sediment Not seen Urine Bacteria Many Urine Mucus Not seen Result Diagrams: 09/13/20 04:19 09/13/20 04:19 Jeremias Results Last 24 hrs: Microbiology 09/12/20 16:29 Urine Culture - Preliminary Urine, Clean Catch Sepsis Event Note - Evaluation Sepsis Screening Result: No Definite Risk - Focused Exam Vital Signs: Vital Signs Temp Pulse Resp BP Pulse Ox 09/13/20 07:30 36.9 C 73 18 116/55 L 98 09/13/20 03:51 36.5 C 74 18 121/57 L 94 L - Problem List & Annotations (1) Acute cystitis without hematuria SNOMED Code(s): 89247016 Code(s): N30.00 - ACUTE CYSTITIS WITHOUT HEMATURIA Status: Acute Current Visit: Yes (2) Atrial fibrillation with RVR SNOMED Code(s): 853781344005185 Code(s): I48.91 - UNSPECIFIED ATRIAL FIBRILLATION Status: Acute Current Visit: Yes (3) Weakness SNOMED Code(s): 12405126 Code(s): R53.1 - WEAKNESS Status: Resolved Current Visit: No (4) Type 2 diabetes mellitus SNOMED Code(s): 63057878 Code(s): E11.9 - TYPE 2 DIABETES MELLITUS WITHOUT COMPLICATIONS Status: Chronic Current Visit: No Qualifiers: Diabetes mellitus manager terminal insulin use: without intermediate use Diabetes mellitus complication status: without complication Qualified Code(s): E11.9 - Type 2 diabetes mellitus without complications (5) Dementia SNOMED Code(s): 54350951 Code(s): F03.90 - UNSPECIFIED DEMENTIA WITHOUT BEHAVIORAL DISTURBANCE Status: Chronic Current Visit: No Qualifiers: Dementia type: Alzheimer's Alzheimer's disease onset: late-onset Dementia behavioral disturbance: without behavioral disturbance Qualified Code(s): G30.1 - Alzheimer's disease with late onset; F02.80 - Dementia in other diseases classified elsewhere without behavioral disturbance - Problem List Review Problem List Initiated/Reviewed/Updated: Yes - My Orders Last 24 Hours: My Active Orders 09/12/20 Dinner Consistent Carbohydrate Diet [DIET] 09/12/20 17:11 Resuscitation Status Routine 09/12/20 17:44 Acetaminophen [TylenoL] 650 mg PO Q4H PRN Docusate Sodium/Sennosides [Senna Plus] 1 tab PO BID PRN LORazepam [Ativan] 0.5 mg IVPUSH Q4H PRN Magnesium Hydroxide [Milk of Magnesia] 30 ml PO Q12H PRN Ondansetron [Zofran ODT] 4 mg PO Q6H PRN Ondansetron [Zofran] 4 mg IV Q6H PRN 09/12/20 17:44 Patient Status [ADT] Routine Cardiac Monitoring [RC] CONTINUOUS Intake and Output [RC] QSHIFT Notify Provider Vital Signs [RC] ASDIRECTED Oxygen Therapy [RC] PRN Up With Assistance [RC] ASDIRECTED Vital Signs [RC] Q4H 09/12/20 18:00 cefTRIAXone [Rocephin] 1 gm Sodium Chloride 0.9% [Normal Saline] 50 ml IV Q24H 09/12/20 18:30 Enoxaparin [Lovenox] 40 mg SUBCUT Q24H 09/12/20 21:00 Acetaminophen [TylenoL] 650 mg PO TID Lactobacillus Rhamnosus GG [Culturelle] 1 cap PO BID Melatonin 9 mg PO BEDTIME Patient's Own Medication [Ptom] 0 each PO BEDTIME Patient's Own Medication [Ptom] 0 each PO BID 09/13/20 07:00 PT Evaluation and Treatment [CONS] Routine 09/13/20 09:00 Aspirin [Halfprin] 81 mg PO DAILY Sertraline HCl [Sertraline HCl] 0 mg PO DAILY 09/13/20 10:00 Letrozole [Letrozole] 0 mg PO DAILY 09/13/20 12:00 Fish Oil/[place]-3 Fatty Acids [Fish Oil] 1 gm PO DAILY Psyllium Husk/Aspartame [Metamucil Sugar Free] 1 pkt PO DAILY metFORMIN [Glucophage] 500 mg PO DAILY@0800 - Plan Plan:: ASSESSMENT AND PLAN - Acute cystitis without hematuria-urine culture growing a gram-negative deana with identification pending. Clinically stable. -Ceftriaxone -Follow-up culture -Physical therapy Atrial fibrillation-Converted to sinus rhythm last night. -Discontinue cardiac monitoring Alzheimer's dementia without behavioral disturbance-no issues at this time. -Continue home medications -Melatonin at bedtime Type 2 diabetes mellitus-not insulin-dependent. -Continue Metformin Maintenance issues - - DVT prophylaxis -enoxaparin - GI prophylaxis -not indicated - Nutrition -diabetic diet CODE STATUS -full code presumed, unable to locate advanced directive, family not sure of CODE STATUS Admission justification -patient will be referred to observation status for antibiotic initiation and cardiac monitoring Disposition -I would anticipate discharge home with home care after the hospital stay, possibly this afternoon or tomorrow morning depending on physical therapy Primary care physician - Phan Sanchez M.D.
[2020-09-13] MEDS: Fish Oil/Omega-3 Fatty Acids 1 Gm Cap PO SCH (11:02)
[2020-09-13] MEDS: LETROZOLE 2.5 MG PO SCH (11:03)
[2020-09-13] MEDS: SERTRALINE HCL 100 MG PO SCH (11:03)
[2020-09-13] MEDS: METFORMIN 500 MG PO SCH (11:04)
[2020-09-13] MEDS: Psyllium Husk Powder Sugar Free 5.85 GM Packet PO SCH (11:04)
[2020-09-13] MEDS ORDERED: Metoprolol Tartrate 25 MG Tab PO ONE (15:00)
[2020-09-13] MEDS: cefTRIAXone 1 GM in Sodium Chloride 0.9% 50 ML IV SCH (17:29)
[2020-09-13] MEDS: Enoxaparin 40 MG/0.4 ML Syringe SUBCUT SCH (17:29)
[2020-09-13] MEDS: ATORVASTATIN 20 MG PO SCH (20:52)
[2020-09-13] MEDS: Melatonin 3 MG Tab PO SCH (20:52)
[2020-09-13] MEDS: Metoprolol Tartrate 25 MG Tab PO SCH (20:52)
[2020-09-14] MEDS: NAMENDA 10 MG PO SCH (08:32)
[2020-09-14] MEDS: LETROZOLE 2.5 MG PO SCH (08:33)
[2020-09-14] MEDS: METFORMIN 500 MG PO SCH (08:33)
[2020-09-14] MEDS: SERTRALINE HCL 100 MG PO SCH (08:33)
[2020-09-14] MEDS: Lactobacillus Rhamnosus GG (Probiotic) Cap PO SCH (08:34)
[2020-09-14] MEDS: Metoprolol Tartrate 25 MG Tab PO SCH ×2 (08:34→10:36)
[2020-09-14] MEDS: Psyllium Husk Powder Sugar Free 5.85 GM Packet PO SCH (08:48)
[2020-09-14] MEDS: Fish Oil/Omega-3 Fatty Acids 1 Gm Cap PO SCH (08:48)
[2020-09-14] MEDS: Acetaminophen 325 MG Tab PO SCH (08:49)
[2020-09-14] MEDS: Aspirin 81 MG Tab.EC PO SCH (08:49)
[2020-09-14 10:40] VITALS: BP 98/52; PULSE 62
--- NOTE | 2020-09-14 10:55 | PCM.DCSUM1 ---
Discharge Summary - Hospital Course Brief History: 84-year-old female with history of Alzheimer's dementia without behavioral disturbance, controlled type 2 diabetes mellitus who presented with weakness. She was admitted for management of a urinary tract infection and suspected new onset atrial fibrillation with a rapid ventricular response. Diagnosis: Stroke: No - Discharge Data Discharge Date: 09/14/20 Discharge Disposition: Home, W Home Health Agency 06 Condition: Good - Referral to Home Health Date of Face to Face Encounter: 09/14/20 Reason for Homebound Status: Acute weakness complicating Alzheimer's disease Primary Care Physician: Braden Kamara NP Skilled Need: Nursing and physical therapy - Discharge Diagnosis/Problem(s) (1) Acute cystitis without hematuria SNOMED Code(s): 20015188 ICD Code: N30.00 - ACUTE CYSTITIS WITHOUT HEMATURIA Status: Acute Current Visit: Yes (2) Atrial fibrillation with RVR SNOMED Code(s): 648657856824385 ICD Code: I48.91 - UNSPECIFIED ATRIAL FIBRILLATION Status: Acute Current Visit: Yes (3) Weakness SNOMED Code(s): 45629253 ICD Code: R53.1 - WEAKNESS Status: Resolved Current Visit: No (4) Type 2 diabetes mellitus SNOMED Code(s): 49687475 ICD Code: E11.9 - TYPE 2 DIABETES MELLITUS WITHOUT COMPLICATIONS Status: Chronic Current Visit: No Qualifiers: 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 use: without halfway use Diabetes mellitus complication status: without complication Qualified Code(s): E11.9 - Type 2 diabetes mellitus without complications (5) Dementia SNOMED Code(s): 11308085 ICD Code: F03.90 - UNSPECIFIED DEMENTIA WITHOUT BEHAVIORAL DISTURBANCE Status: Chronic Current Visit: No Qualifiers: Dementia type: Alzheimer's Alzheimer's disease onset: late-onset Dementia behavioral disturbance: without behavioral disturbance Qualified Code(s): G30.1 - Alzheimer's disease with late onset; F02.80 - Dementia in other diseases classified elsewhere without behavioral disturbance - Patient Summary/Data Consults: Consultations 09/13/20 07:00 PT Evaluation and Treatment [CONS] Routine Please Evaluate and Treat. PT Reason for Consult: Strengthening This query below is only for informational purposes and is not editable. Hospital Course: Lori presented to the emergency room with acute onset of weakness as well as an episode of vomiting. Work-up in the emergency room revealed evidence for a urinary tract infection. She was also in atrial fibrillation with a rapid ventricular response. Laboratory studies were otherwise reassuring. She was started on ceftriaxone for coverage of the urinary tract infection and a culture was set up. She was admitted to the hospital with telemetry. Shortly after admission she converted to sinus rhythm. Overnight the first night there were no acute issues. She was weak the day after admission but otherwise doing okay. She did go in and out of atrial fibrillation a couple of times this day but for the most part was in sinus rhythm. Her urine culture was growing a gram- negative deana with identification pending. Overnight the second night there were no issues. Her urine culture returned on the day of discharge and was growing a nearly pansensitive E. coli. She did continue to have intermittent atrial fibrillation but for the most part was in sinus rhythm. We did start her on a very low-dose of metoprolol to help control these episodes and she tolerated this well. She did much better with physical therapy on the day of discharge and was able to ambulate more than 200 feet. She was able to go up and down five stairs. I believe she is doing well enough that she can be discharged home for outpatient management. Her was interested in starting home care to help ease the transition home. She will need few more doses of antibiotics as outlined in the medication section. She is going home with a low-dose of long- acting metoprolol to help control her atrial fibrillation. We did discuss anticoagulation but we are going to hold off at this point because she is at a high risk for falls. If treating the infection and starting the metoprolol keeps her out of atrial fibrillation hopefully we can avoid systemic anticoagulation. - Patient Instructions Diet: Usual Diet as Tolerated Activity: As Tolerated Showering/Bathing: May Shower Notify Provider of: Fever, Nausea and/or Vomiting Other/Special Instructions: 1. You were in the hospital for management of acute weakness that was caused by a urinary tract infection. The causative bacteria was E. coli and this was sensitive to nearly all of the antibiotics tested. I do recommend additional antibiotic therapy after hospital discharge. Please take cephalexin (Keflex) 500 mg twice daily for six doses. Your first dose outside of the hospital will be due tonight. 2. During the hospital stay we noticed that your heart seems to go in and out of a fast heart rhythm called atrial fibrillation. We have utilized a low dose of metoprolol to help slow down the rate and ideally help prevent your heart from going into this rhythm. I recommend that we start a new medication to help control this after hospital discharge. Please take metoprolol succinate 12.5 mg once daily. Atrial fibrillation does increase your risk of stroke and if you remain in this rhythm we may need to consider starting systemic anticoagulation such as warfarin. Please talk to your primary care provider about this at your follow-up appointment. 3. I have placed a referral to home health. They will provide nursing and physical therapy services to help ease your transition home. 4. Follow up with your primary care provider as scheduled. 5. Continue your other home medications as previously prescribed. - Discharge Plan Prescriptions/Med Rec: cephALEXin [Cephalexin] 500 mg PO BID #6 capsule Metoprolol Succinate 12.5 mg PO DAILY #30 tab.er.24h Home Medications: Home Meds metFORMIN [Glucophage] 500 mg PO DAILY 12/07/13 [History] Memantine [Namenda] 10 mg PO BID 02/16/17 [History] Sertraline HCl 100 mg PO DAILY 02/16/17 [History] atorvaSTATin [Lipitor] 20 mg PO BEDTIME 02/16/17 [History] Psyllium with Sucrose [Metamucil] 1 pack PO DAILY 02/18/17 [History] Aspirin [Adult Low Dose Aspirin EC] 81 mg PO DAILY 12/22/19 [History] Creola-3/DHA/Epa/Fish Oil [Creola 3 500 Softgel] 1,000 mg PO DAILY 12/22/19 [History] Acetaminophen [Tylenol] 650 mg PO Q6H tablet 12/28/19 [Rx] Magnesium Hydroxide [Milk of Magnesia] 30 ml PO DAILY PRN #30 ml 12/28/19 [Rx] Letrozole 2.5 mg PO DAILY 09/12/20 [History] Metoprolol Succinate 12.5 mg PO DAILY #30 tab.er.24h 09/14/20 [Rx] cephALEXin [Cephalexin] 500 mg PO BID #6 capsule 09/14/20 [Rx] Oxygen Therapy Mode: Room Air Patient Handouts: Atrial Fibrillation, Nopd-ul-[id number], Metoprolol extended- release tablets Referrals: Braden Kamara NP [Primary Care Provider] - 09/21/20 11:00 am (Please arrive 15 minutes early to register for appointment. YOUR APPOINTMENT WITH BRADEN KAMARA IS AT THE [facility].) - Discharge Summary/Plan Comment DC Time >30 min.: Yes (35-set up home care ) - Patient Data Vitals - Most Recent: Last Vital Signs Temp 36.5 C 09/14/20 10:41 Pulse 62 09/14/20 10:41 Resp 13 09/14/20 10:41 BP 98/52 L 09/14/20 10:41 Pulse Ox 95 09/14/20 10:41 Weight - Most Recent: 85.275 kg I&O - Last 24 hours: Intake & Output 09/13/20 09/14/20 09/14/20 22:59 06:59 14:59 Intake Total 300 Output Total 200 500 Balance 300 -200 -500 SANTIAGO Results - Last 24 hrs: Microbiology 09/12/20 16:29 Urine Culture - Final Urine, Clean Catch Escherichia Coli Med Orders - Current: Current Medications Acetaminophen (Acetaminophen 325 Mg Tab) 650 mg PO TID [facility] Last Admin: 09/14/20 08:49 Dose: 650 mg Documented by: Acetaminophen (Acetaminophen 325 Mg Tab) 650 mg PO Q4H PRN PRN Reason: Pain (Mild 1-3)/fever Aspirin (Aspirin 81 Mg Tab.Ec) 81 mg PO DAILY [facility] Last Admin: 09/14/20 08:49 Dose: 81 mg Documented by: Enoxaparin Sodium (Enoxaparin 40 Mg/0.4 Ml Syringe) 40 mg SUBCUT Q24H [facility] Last Admin: 09/13/20 17:29 Dose: 40 mg Documented by: Fish Oil (Fish Oil/Creola-3 Fatty Acids 1 Gm Cap) 1 gm PO DAILY [facility] Last Admin: 09/14/20 08:48 Dose: 1 gm Documented by: Ceftriaxone Sodium 1 gm/ (Sodium Chloride) 50 mls @ 100 mls/hr IV Q24H [facility] Last Admin: 09/13/20 17:29 Dose: 100 mls/hr Documented by: Lactobacillus Rhamnosus (Lactobacillus Rhamnosus Gg (Probiotic) Cap) 1 cap PO BID [facility] Last Admin: 09/14/20 08:34 Dose: 1 cap Documented by: Lorazepam (Lorazepam 2 Mg/Ml Sdv) 0.5 mg IVPUSH Q4H PRN PRN Reason: Nausea/Vomiting Magnesium Hydroxide (Magnesium Hydroxide 400 Mg/5 Ml Susp 30 Ml Cup) 30 ml PO Q12H PRN PRN Reason: Constipation Melatonin (Melatonin 3 Mg Tab) 9 mg PO BEDTIME [facility] Last Admin: 09/13/20 20:52 Dose: 9 mg Documented by: Metformin HCl (Metformin 500 Mg Tab*Pom*) 500 mg PO DAILY@0800 [facility] Last Admin: 09/14/20 08:33 Dose: 500 mg Documented by: Metoprolol Tartrate (Metoprolol Tartrate 25 Mg Tab) 12.5 mg PO BID [facility] Last Admin: 09/14/20 10:36 Dose: 12.5 mg Documented by: (Sertraline Hcl [ Sertraline Hcl] 100mg Tablet) 0 mg PO DAILY [facility] Last Admin: 09/14/20 08:33 Dose: 100 mg Documented by: (Letrozole [ Letrozole] 2.5 Mg Tablet)*Pom* 0 mg PO DAILY [facility] Last Admin: 09/14/20 08:33 Dose: 2.5 mg Documented by: Ondansetron HCl (Ondansetron 4 Mg/2 Ml Sdv) 4 mg IV Q6H PRN PRN Reason: Nausea/Vomiting Ondansetron HCl (Ondansetron 4 Mg Tab.Dis) 4 mg PO Q6H PRN PRN Reason: Nausea able to take PO Atorvastatin 20 Mg (Tab *Pt Own Med*) 0 each PO BEDTIME [facility] Last Admin: 09/13/20 20:52 Dose: 1 each Documented by: Namenda 10 Mg Tab * (Pt Own Med*) 0 each PO BID [facility] Last Admin: 09/14/20 08:32 Dose: 1 each Documented by: Psyllium Husk (Psyllium Husk Powder Sugar Free 5.85 Gm Packet) 1 pkt PO DAILY [facility] Last Admin: 09/14/20 08:48 Dose: 1 pkt Documented by: Senna/Docusate Sodium (Docusate Sodium/Sennosides 50-8.6 Mg Tab) 1 tab PO BID PRN PRN Reason: Constipation Sodium Chloride (Sodium Chloride 0.9% 10 Ml Syringe) 10 ml FLUSH ASDIRECTED PRN PRN Reason: Keep Vein Open Last Admin: 09/12/20 14:54 Dose: 10 ml Documented by: Discontinued Medications Lactated Ringer's (Ringers, Lactated) 1,000 mls @ 999 mls/hr IV BOLUS ONE Stop: 09/12/20 15:37 Last Admin: 09/12/20 14:51 Dose: 999 mls/hr Documented by: Metoprolol Tartrate (Metoprolol Tartrate 25 Mg Tab) 12.5 mg PO ONETIME ONE Stop: 09/13/20 15:01 Last Admin: 09/13/20 15:18 Dose: 12.5 mg Documented by: (Letrozole [ Letrozole] 2.5 Mg Tablet)*Pom* 2.5 mg PO DAILY FAWAD Ondansetron HCl (Ondansetron 4 Mg/2 Ml Sdv) 4 mg IVPUSH ONETIME ONE Stop: 09/12/20 14:38 Last Admin: 09/12/20 14:51 Dose: 4 mg Documented by:
== END 2020-09-14 12:10 | disposition home health service (06) ==
LOC: JP.ED 14:05 → JP.SDSSCHI 14:15 → UNDOADMIN 14:15 → EDSTATUS 15:28 → JP.ICU 17:08 → JP.MS 18:13
PROVIDERS: ADMIT Internal Medicine; ATTEND Internal Medicine
DX: N30.00 Acute cystitis without hematuria (principal); R53.1 Weakness; B96.20 Unspecified Escherichia coli [E. coli] as the cause of diseases classified elsewhere; I48.91 Unspecified atrial fibrillation; E11.9 Type 2 diabetes mellitus without complications; G30.9 Alzheimer's disease, unspecified; F02.80 Dementia in other diseases classified elsewhere, unspecified severity, without behavioral disturbance, psychotic disturbance, mood disturbance, and anxiety; E66.9 Obesity, unspecified; Z68.34 Body mass index [BMI] 34.0-34.9, adult; Z79.84 Long term (current) use of oral hypoglycemic drugs; Z79.899 Other long term (current) drug therapy; Z88.1 Allergy status to other antibiotic agents; Z91.041 Radiographic dye allergy status; Z91.013 Allergy to seafood; Z86.010 Personal history of colon polyps; Z85.038 Personal history of other malignant neoplasm of large intestine; Z85.3 Personal history of malignant neoplasm of breast; Z98.890 Other specified postprocedural states
CPT/HCPCS: 36415; 71046; 80048; 80053; 81001; 83605; 83690; 84443; 84484; 85025; 85027; 87086; 87088; 87186; 93005; 93010; 96365; 96366; 96372; 96374; 96375; 97116-GP; 97162-GP; 97530-GP; 99283; 99285-25; A9270-GY; G0378; J0696; J1650; J2405; J7120

== ENCOUNTER 2021-10-09 17:19 | Emergency (ER) | payer MEDICARE ==
[2021-10-09] MEDS ORDERED: Sodium Chloride 0.9% 10 ML Syringe FLUSH PRN ×2 (17:38)
[2021-10-09 18:36] LABS: TROPONIN I HIGH SENSITIVITY 71.3 pg/mL (<=60.3)
[2021-10-09 18:57] VITALS: BP 154/66; PULSE 70
[2021-10-09] MEDS ORDERED: Nitrofurantoin Monohydrate/Macrocrystalline 100 MG Cap PO ONE (19:07)
== END 2021-10-09 19:27 | disposition home or self-care (01) ==
LOC: JP.ED 17:19
DX: G45.9 Transient cerebral ischemic attack, unspecified (principal); N30.00 Acute cystitis without hematuria; G30.1 Alzheimer's disease with late onset; F02.80 Dementia in other diseases classified elsewhere, unspecified severity, without behavioral disturbance, psychotic disturbance, mood disturbance, and anxiety; I10 Essential (primary) hypertension; E78.5 Hyperlipidemia, unspecified; E11.9 Type 2 diabetes mellitus without complications; E66.9 Obesity, unspecified; Z68.34 Body mass index [BMI] 34.0-34.9, adult; Z79.84 Long term (current) use of oral hypoglycemic drugs; Z88.0 Allergy status to penicillin; Z91.041 Radiographic dye allergy status; Z91.013 Allergy to seafood; Z79.899 Other long term (current) drug therapy; Z85.038 Personal history of other malignant neoplasm of large intestine; Z85.3 Personal history of malignant neoplasm of breast
CPT/HCPCS: 36415; 70450; 80053; 81001; 83605; 84484; 85025; 87086; 87186; 93005; 93010; 99284; 99285-25; A9270-GY; J3490

== ENCOUNTER 2022-01-28 10:49 | Emergency (ER) | payer MEDICARE ==
[2022-01-28] MEDS ORDERED: Sodium Chloride 0.9% 10 ML Syringe FLUSH PRN (10:56)
[2022-01-28 11:24] LABS: ESTIMATED GFR 44 mL/min (>60)
[2022-01-28 11:58] VITALS: BP 106/72
[2022-01-28] MEDS ORDERED: Aspirin 81 MG Tab.Chew PO ONE (13:11)
[2022-01-28] MEDS ORDERED: Digoxin 500 MCG/2 ML Amp IVPUSH ONE (13:12)
[2022-01-28 13:24] VITALS: PULSE 123
== END 2022-01-28 13:45 ==
LOC: JP.ED 10:49
DX: I63.9 Cerebral infarction, unspecified (principal); I48.91 Unspecified atrial fibrillation; G30.1 Alzheimer's disease with late onset; E78.5 Hyperlipidemia, unspecified; I10 Essential (primary) hypertension; E11.9 Type 2 diabetes mellitus without complications; Z85.3 Personal history of malignant neoplasm of breast; Z79.899 Other long term (current) drug therapy; Z88.8 Allergy status to other drugs, medicaments and biological substances; Z20.822 Contact with and (suspected) exposure to COVID-19
CPT/HCPCS: 36415; 70450; 80048; 81001; 82947; 85025; 85610; 85651; 85730; 93005; 96374; 99285; A9270; J1160; U0002

== ENCOUNTER 2022-05-03 01:11 | Emergency (ER) | payer MEDICARE ==
[2022-05-03] MEDS ORDERED: Tranexamic Acid 1,000 MG/10 ML Vial TOP ONE (01:22)
[2022-05-03 01:47] VITALS: BP 168/88; PULSE 77
== END 2022-05-03 03:14 ==
LOC: JP.ED 01:11
DX: S00.03XA Contusion of scalp, initial encounter (principal); G30.1 Alzheimer's disease with late onset; F02.80 Dementia in other diseases classified elsewhere, unspecified severity, without behavioral disturbance, psychotic disturbance, mood disturbance, and anxiety; R04.0 Epistaxis; I48.91 Unspecified atrial fibrillation; I10 Essential (primary) hypertension; E11.9 Type 2 diabetes mellitus without complications; E66.9 Obesity, unspecified; Z68.30 Body mass index [BMI] 30.0-30.9, adult; Z88.0 Allergy status to penicillin; Z91.013 Allergy to seafood; Z91.041 Radiographic dye allergy status; Z79.01 Long term (current) use of anticoagulants; Z79.84 Long term (current) use of oral hypoglycemic drugs; Z79.899 Other long term (current) drug therapy; W18.30XA Fall on same level, unspecified, initial encounter
CPT/HCPCS: 30903; 30905; 70450; 99284; 99285

== ENCOUNTER 2022-06-11 22:14 | Emergency (ER) | payer MEDICARE ==
[2022-06-11] MEDS ORDERED: Tranexamic Acid 1,000 MG/10 ML Vial TOP ONE (22:16)
[2022-06-11 22:26] VITALS: BP 142/87; PULSE 109
== END 2022-06-12 00:23 ==
LOC: JP.ED 22:14
DX: R04.0 Epistaxis (principal); I48.91 Unspecified atrial fibrillation; I10 Essential (primary) hypertension; E11.9 Type 2 diabetes mellitus without complications; G30.9 Alzheimer's disease, unspecified; F02.80 Dementia in other diseases classified elsewhere, unspecified severity, without behavioral disturbance, psychotic disturbance, mood disturbance, and anxiety; E66.9 Obesity, unspecified; Z68.31 Body mass index [BMI] 31.0-31.9, adult; Z88.0 Allergy status to penicillin; Z91.041 Radiographic dye allergy status; Z91.013 Allergy to seafood; Z79.84 Long term (current) use of oral hypoglycemic drugs; Z79.01 Long term (current) use of anticoagulants; Z79.899 Other long term (current) drug therapy
CPT/HCPCS: 30903; 99283-25

== ENCOUNTER 2022-06-13 09:03 | Emergency (ER) | payer MEDICARE ==
[2022-06-13] MEDS ORDERED: Sodium Chloride 0.9% 500 ML IV ONE (09:07)
[2022-06-13 09:10] VITALS: BP 133/87
[2022-06-13] MEDS ORDERED: Digoxin 125 MCG Tab PO ONE (09:47)
[2022-06-13] MEDS ORDERED: Magnesium Oxide 400 MG Tab PO ONE (09:53)
[2022-06-13 10:07] VITALS: PULSE 94
== END 2022-06-13 11:25 | disposition home or self-care (01) ==
LOC: JP.ED 09:03
DX: G30.9 Alzheimer's disease, unspecified (principal); F02.80 Dementia in other diseases classified elsewhere, unspecified severity, without behavioral disturbance, psychotic disturbance, mood disturbance, and anxiety; I95.9 Hypotension, unspecified; I48.20 Chronic atrial fibrillation, unspecified; I10 Essential (primary) hypertension; E11.9 Type 2 diabetes mellitus without complications; E66.9 Obesity, unspecified; Z68.29 Body mass index [BMI] 29.0-29.9, adult; Z88.0 Allergy status to penicillin; Z91.041 Radiographic dye allergy status; Z91.013 Allergy to seafood; Z79.01 Long term (current) use of anticoagulants; Z79.84 Long term (current) use of oral hypoglycemic drugs; Z79.899 Other long term (current) drug therapy; W19.XXXA Unspecified fall, initial encounter
CPT/HCPCS: 36415; 80048; 81001; 82040; 83735; 85025; 87086; 93005; 99285; A9270; J7040

== ENCOUNTER 2023-02-19 19:44 | Emergency (ER) | payer MEDICARE ==
[2023-02-19 20:36] LABS: APPEARANCE,URINE SLIGHTLY CLOUDY (CLEAR); BILIRUBIN,URINE NEGATIVE (NEGATIVE); COLOR,URINE YELLOW (YELLOW); GLUCOSE,URINE NEGATIVE (NEGATIVE); KETONES,URINE NEGATIVE (NEGATIVE); LEUKOCYTE ESTERASE,URINE MODERATE (NEGATIVE); NITRITE,URINE NEGATIVE (NEGATIVE); OCCULT BLOOD,URINE TRACE-INTACT (NEGATIVE); PH,URINE 6.5 (5.0-8.0); PROTEIN,URINE TRACE mg/dL (NEGATIVE)
[2023-02-19 20:45] LABS: AMORPHOUS SEDIMENT,URINE NOT SEEN; BACTERIA,URINE MODERATE; EPITHELIAL CELLS,URINE FEW; MUCUS,URINE FEW; RBC,URINE 0-5 (0-5); WBC,URINE 20-30 (0-5)
[2023-02-19 21:04] VITALS: BP 144/75; PULSE 83
== END 2023-02-19 22:21 ==
LOC: JP.ED 19:44
DX: S09.90XA Unspecified injury of head, initial encounter (principal); N30.00 Acute cystitis without hematuria; I48.91 Unspecified atrial fibrillation; I10 Essential (primary) hypertension; E11.9 Type 2 diabetes mellitus without complications; E66.9 Obesity, unspecified; Z88.0 Allergy status to penicillin; Z91.041 Radiographic dye allergy status; Z91.013 Allergy to seafood; Z79.84 Long term (current) use of oral hypoglycemic drugs; Z79.899 Other long term (current) drug therapy; W19.XXXA Unspecified fall, initial encounter; Y92.129 Unspecified place in nursing home as the place of occurrence of the external cause
CPT/HCPCS: 70450; 72125; 76377; 81001; 87086; 99284